=== PATIENT | female | born 1955 | race Caucasian/White ===

== ENCOUNTER 2019-12-30 08:14 | Outpatient (CLI) | payer BC, SELFPAY ==
--- NOTE | ~2019-12-30 | US_ITS ---
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 TECHNIQUE: Multiple grayscale and Doppler ultrasound images of the abdomen were obtained. COMPARISON: Ultrasound 06/07/2019 FINDINGS: The visualized portions of the head and body of the pancreas are normal. The liver demonstr ates coarsened echotexture and surface nodularity, consistent with cirrhosis. The gallbladder is norm al in size and contains gallstones. Gallbladder wall thickening is likely secondary to chronic liver disease. There was no sonographic Luna sign. The common duct is normal and measures 4 mm. IMPRESSION: 1. Cirrhosis of the liver. 2. Cholelithiasis. Reviewed, dictated and finalized at location B.
[2019-12-30 09:19] LABS: Basophils Percent Auto 0.6 % (0.2-1.2); Eosinophils Absolute Auto 0.1 K/mm3 (0-0.3); Eosinophils Percent Auto 2.5 % (0-4.4); Hematocrit 29.2 % (37.0-47.0); Hemoglobin 8.8 g/dL (12.0-15.0); Lymphocytes Absolute Auto 1.17 K/mm3 (0.9-3.2); Lymphocytes Percent Auto 36.9 % (18.3-44.2); Mean Corpuscular HGB Conc 30.1 g/dl (32-36); Mean Corpuscular Hemoglobin 23.9 pg (26-34); Mean Corpuscular Volume 79.3 fl (80-100); Monocytes Absolute Auto 0.3 K/mm3 (0.1-0.6); Monocytes Percent Auto 8.8 % (2.6-8.5); Neutrophils Absolute Auto 1.6 K/mm3 (1.3-6.7); Neutrophils Percent Auto 51.2 % (45.5-73.1); Platelet Count Result 132 k/mm3 (150-375); Red Blood Count 3.68 M/mm3 (4.2-5.4); Red Cell Distribution Width 17.9 % (11.5-14.5); White Blood Count 3.2 K/mm3 (4.5-10.0)
[2019-12-30 09:26] LABS: INR 1.3; Prothrombin Time 15.4 Seconds (11.1-14.7)
[2019-12-30 09:36] LABS: Alanine Aminotransferase 19 U/L (4-35); Albumin Level 3.5 g/dL (3.5-5.1); Alkaline Phosphatase 88 U/L (38-126); Anion Gap 5 mmol/L (8-16); Aspartate Amino Transferase 30 U/L (14-36); Bilirubin,Total 1.2 mg/dL (0.2-1.3); Blood Urea Nitrogen 17 mg/dL (7-17); Calcium 9.8 mg/dL (8.4-10.2); Carbon Dioxide 22 mmol/L (22-30); Chloride 113 mmol/L (98-107); Estimated Glomerular Filt Rate > 60; Glucose 94 mg/dL (65-105); Potassium 3.9 mmol/L (3.4-5.0); Sodium 140 mmol/L (137-145)
[2020-01-05 07:00] LABS: Alpha Fetoprotein Tumor Marker 3.2 ng/mL (<6.1)
== END 2019-12-30 08:15 | disposition home or self-care (01) ==
PROVIDERS: PCP Family Medicine; Visit Provider Internal Medicine Gastroenterology
DX: K70.30 Alcoholic cirrhosis of liver without ascites (principal); K80.20 Calculus of gallbladder without cholecystitis without obstruction
CPT/HCPCS: 36415; 76705; 80053; 82105; 85025; 85610

== ENCOUNTER 2020-01-11 16:08 | Outpatient (CLI) | payer BC, SELFPAY ==
[2020-01-11 17:43] LABS: Immature Reticulocyte Fraction 16.1 % (3.0-15.9); Reticulocyte Hemoglobin Conten 23.7 pg (28.2-35.7); Reticulocyte Percent 0.97 % (0.7-4.3); Reticulocytes Absolute 0.03 B/L (32.2-175.7)
[2020-01-11 17:58] LABS: Iron 25 ug/dL (37-170)
[2020-01-11 18:07] LABS: Percent Iron Saturation 6 % (20-50)
[2020-01-11 18:39] LABS: Folic Acid 13.6 ng/mL (2.76->20)
[2020-01-14 23:31] LABS: Haptoglobin 38 mg/dL (43-212)
== END 2020-01-11 16:09 | disposition home or self-care (01) ==
LOC: ANHLAB 16:12
PROVIDERS: PCP Family Medicine; Visit Provider Internal Medicine Gastroenterology
DX: K70.30 Alcoholic cirrhosis of liver without ascites (principal)
CPT/HCPCS: 36415; 82607; 82728; 82746; 83010; 83540; 83550; 85046

== ENCOUNTER → 2020-02-14 12:32 | Outpatient (CLI) | payer BC, SELFPAY ==
--- NOTE | ~2020-02-14 | MM_ITS ---
EXAMINATION: MM screening [facility] BI w kelli HISTORY: Screening mammogram TECHNIQUE: Craniocaudal and mediolateral oblique 3-D tomosynthesis images were obtained and synthetic 2-D images were generated. CAD analysis was submitted and interpreted. COMPARISON: 09/27/2018, 08/31/2017, 06/25/2016 BREAST PARENCHYMAL COMPOSITION: There are scattered areas of fibroglandular density. FINDINGS: There is no evidence of suspicious mass, calcification, or architectural distortion to sugg est malignancy in either breast. There has been no suspicious interval change. IMPRESSION: 1. No mammographic evidence of malignancy. 2. Recommend routine screening mammography in one year. BI-RADS Category 1: Negative Reviewed, dictated and finalized at location A.
== END ==
PROVIDERS: PCP Family Medicine; Visit Provider Family Medicine
DX: Z12.31 Encounter for screening mammogram for malignant neoplasm of breast (principal)
CPT/HCPCS: 77063; 77067

== ENCOUNTER 2020-03-21 16:10 | Outpatient (CLI) | payer BC, SELFPAY ==
[2020-03-21 16:48] LABS: Basophils Percent Auto 0.6 % (0.2-1.2); Eosinophils Absolute Auto 0.1 K/mm3 (0-0.3); Eosinophils Percent Auto 2.3 % (0-4.4); Immature Granulocyte Absolute 0.01 K/mm3 (0.00-0.031); Immature Granulocyte Percent A 0.2 % (0-0.5); Immature Platelet Fraction Pct 2.8 % (0.9-11.2); Lymphocytes Absolute Auto 1.48 K/mm3 (0.9-3.2); Lymphocytes Percent Auto 30.3 % (18.3-44.2); Mean Corpuscular HGB Conc 33.3 g/dl (32-36); Mean Corpuscular Hemoglobin 29.2 pg (26-34); Mean Corpuscular Volume 87.6 fl (80-100); Mean Platelet Volume 10.5 fl (7.4-10.4); Monocytes Absolute Auto 0.5 K/mm3 (0.1-0.6); Neutrophils Absolute Auto 2.8 K/mm3 (1.3-6.7); Neutrophils Percent Auto 56.6 % (45.5-73.1); Platelet Count Result 106 k/mm3 (150-375); Red Blood Count 4.45 M/mm3 (4.2-5.4); Red Cell Distribution Width 18.8 % (11.5-14.5); White Blood Count 4.9 K/mm3 (4.5-10.0)
== END 2020-03-21 16:11 | disposition home or self-care (01) ==
LOC: ANHLAB 16:12
PROVIDERS: PCP Family Medicine; Visit Provider Internal Medicine Gastroenterology
DX: K70.30 Alcoholic cirrhosis of liver without ascites (principal)
CPT/HCPCS: 36415; 85025; 85055

== ENCOUNTER → 2020-04-06 12:04 | Outpatient (CLI) | payer BC, SELFPAY ==
--- NOTE | ~2020-04-06 | XR_ITS ---
EXAMINATION: XR shoulder LT min 2V DATE: 04/06/2020 13:32 INDICATION: Left shoulder pain. TECHNIQUE: 4 views of left shoulder on 5 radiographs were obtained. COMPARISON: None. FINDINGS: Bone alignment is normal. No fracture. There is severe osteoarthritis of glenohumeral joint and mild osteoarthritis of acromioclavicular joint. IMPRESSION: 1. Severe glenohumeral joint osteoarthritis. Reviewed, dictated and finalized at location A. IGN LAW CONSULTANT
--- NOTE | ~2020-04-06 | XR_ITS ---
XR_CERV2-3V_CR DATE: 04/06/2020 13:32 INDICATION: Left shoulder pain TECHNIQUE: AP, open-mouth, odontoid, lateral and swimmer views COMPARISON: None FINDINGS: There is diffuse osteopenia. There is straightening of the cervical spine. C1 and C2 are normally aligned and the odontoid process is intact. There is minimal anterolisthesis at C3-4 and C4-5 and C6-7. No fracture or dislocation or locked facet. No prevertebral soft tissue swelling. There is mild loss of interspace height at C4-5. There is severe loss of interspace height due to severe degenerative disc disease at C5-6. There is moderate loss of interspace height at C6-7. IMPRESSION: Straightening Diffuse osteopenia Multilevel degenerative disc disease Minimal anterolisthesis at C3-4, C4-5 and C6-7 Reviewed, dictated and finalized at Location A. Reviewed, dictated and finalized at location B. [employer] DEFENSE OFFICER
== END ==
PROVIDERS: Visit Provider Physician Assistant
DX: M85.812 Other specified disorders of bone density and structure, left shoulder (principal); M19.012 Primary osteoarthritis, left shoulder
CPT/HCPCS: 72040; 73030

== ENCOUNTER → 2020-07-27 07:58 | Outpatient (CLI) | payer BC, SELFPAY ==
--- NOTE | ~2020-07-27 | US_ITS ---
EXAMINATION: US right upper quadrant DATE: 07/27/2020 08:18 INDICATION: Alcoholic cirrhosis of the liver TECHNIQUE: Multiple grayscale and Doppler ultrasound images of the abdomen were obtained. COMPARISON: 12/30/2019 FINDINGS: The head and body of the pancreas are normal. The pancreatic tail is obscured by bowel gas. The liver demonstrates coarse echotexture. There is nodularity of the liver surface. Normal hepatope albert flow in the main portal vein. Stones are present in the nondistended gallbladder. There is no per icholecystic fluid. The normal common bile duct measures 5 mm. There was no sonographic Luna sign. IMPRESSION: 1. Cirrhosis. 2. Cholelithiasis without evidence of cholecystitis. Reviewed, dictated and finalized at location A. WORKER
== END ==
PROVIDERS: PCP Family Medicine; Visit Provider Internal Medicine Gastroenterology
DX: K70.30 Alcoholic cirrhosis of liver without ascites (principal); K80.20 Calculus of gallbladder without cholecystitis without obstruction
CPT/HCPCS: 76705

== ENCOUNTER 2020-10-22 13:50 | Outpatient (CLI) | payer BC, SELFPAY ==
--- NOTE | 2020-10-22 14:05 | ECHO_ITS ---
Patient Info Name: Selena Feldman Age: 65 years : 1955 Gender: Female Ht: 65 in Wt: 145 lbs BSA: 1.75 m2 HR: 93 bpm BP: 154 / 83 mmHg Technical Quality: Good Exam Date: 10/22/2020 2:18 PM Exam Location: [facility] Patient Status: Outpatient Admit Date: 10/22/2020 Staff Ordering Physician: Carmen Joseph MD Tipple Repairer: Rajinder Luna, ALYX, RT Attending Provider: Carmen Joseph MD Referring Physician: Opal VASQUEZ; Exam Type: CA echo doppler color flow Study Info Indications R01.1 - Cardiac murmur, unspecified Complete two-dimensional, color flow and Doppler transthoracic echocardiogram is performed. Strain analysis performed. Summary 1. Complete two-dimensional, color flow and Doppler transthoracic echocardiogram is performed. 2. Left ventricular chamber dimension is normal. 3. Left ventricular systolic function is normal, estimated at 60-65%. 4. The left ventricular diastolic function is abnormal. 5. E/e' 10 is mildly elevated. 6. Global longitudinal strain is normal at -23.3%. 7. Left atrial chamber dimension is mildly enlarged. 8. There is trace mitral valve regurgitation. 9. There is trace tricuspid valve regurgitation. 10. No pulmonary hypertension, estimated pulmonary arterial systolic pressure is 37 mmHg. Left Ventricle E/e' 10 is mildly elevated. Global longitudinal strain is normal at -23.3%. Left ventricular chamber dimension is normal. Left ventricular systolic function is normal, estimated at 60-65%. The left ventricular diastolic function is abnormal. Right Ventricle Right ventricular systolic function is normal and with normal TAPSE 2.3 cm. Right ventricular chamber dimension is normal. Left Atria Left atrial chamber dimension is mildly enlarged. Right Atria Right atrial chamber dimension is normal. Aortic Valve The aortic valve is trileaflet. There is no aortic valve stenosis. There is no aortic valve regurgitation. Pulmonic Valve There is no pulmonic regurgitation. Mitral Valve There is no mitral valve stenosis. There is trace mitral valve regurgitation. Tricuspid Valve There is trace tricuspid valve regurgitation. No pulmonary hypertension, estimated pulmonary arterial systolic pressure is 37 mmHg. Pericardium/Pleural There is no pericardial effusion. Inferior Vena Cava Normal inferior vena cava with >50% collapse upon inspiration consistent with normal right atrial pressure, 5 mmHg. Aorta The aortic root size at the sinus of Valsalva is normal. Left Ventricular Outflow Tract Name Value Normal LVOT 2D LVOT Diameter 2.0 cm LVOT Doppler LVOT Peak Gradient 8 mmHg LVOT Mean Gradient 4 mmHg LVOT VTI 24 cm LVOT VTI/AV VTI Ratio 0.7 LVOT Stroke Volume 72 ml LVOT CO 6.4 l/min LVOT CI 3.7 l/min/m2 Mitral Valve Name
== END 2020-10-22 13:51 | disposition home or self-care (01) ==
PROVIDERS: PCP Family Medicine; Visit Provider Family Medicine
DX: R01.1 Cardiac murmur, unspecified (principal)
CPT/HCPCS: 93306

== ENCOUNTER → 2021-02-05 11:12 | Outpatient (CLI) | payer BC, SELFPAY ==
--- NOTE | ~2021-02-05 | CT_ITS ---
EXAMINATION: CT abdomen pelvis wo/w con EXAM DATE: 02/05/2021 12:02 INDICATION: R31.9 - Hematuria, unspecified . TECHNIQUE: Spiral CT of the abdomen and pelvis was performed without contrast. The patient was then injected with small bolus intravenous Omnipaque 350, followed by delay of approximately 10 minutes to allow collecting system to opacify. A post contrast scan abdomen and pelvis was performed during inj ection of remaining contrast. A total of 130 cc intravenous contrast was administered. The dose-booker th product (DLP) for this examination was 1285.93 mGy-cm. The exposure was tailored according to pat ient size (auto mA exposure control), and iterative reconstruction (ASIR) was used as additional dose reduction technique. Comparison is made to prior examination from 08/16/2012. FINDINGS: Multiple bilateral small kidney stones, largest on the left up to 4 mm. There is a right UP J stone measuring 3 mm and there is mild right hydronephrosis but no perinephric fat stranding. Boo tionally, the kidneys enhance symmetrically and contrast does make it beyond the stone into the right ureter, does not appear to be acutely obstructing. There is tortuosity at the right ureteropelvic / proximal ureteral junction. There are no suspicious renal lesions. The calyces and opacified portion s of ureters are unremarkable, without filling defects or focal suspicious strictures. The bladder i s unremarkable. The uterus is not identified and has likely been surgically resected. There is cirrhosis, portal hypertension, splenomegaly and severely enlarged splenic vein and splenore nal portosystemic collateralization, vein diameter up to 2 cm. The adrenal glands and pancreas are un remarkable. There are 2 small nonobstructing gallstones. Gallbladder is moderately distended and has wall edema, finding which is nonspecific in the setting of liver disease and no acute symptomatology was provided. There is no retroperitoneal or pelvic lymphadenopathy. The appendix is normal. The stomach and small bowel are unremarkable. There is expected amount of c olonic stool. No free intraperitoneal gas. Borderline heart size. Trace pericardial and right ple ural effusions. The lung bases are unremarkable. There are no osteoblastic or osteolytic lesions id entified. IMPRESSION: 1. Right UPJ 3 mm nonobstructing or intermittently obstructing stone with mild hydronephrosis. Bilat eral nephrolithiasis. 2. Cirrhosis, splenomegaly, portal hypertension with severely dilated splenorenal collateralization. 3. Cholelithiasis nonspecific gallbladder wall edema. Edema could be from liver disease given absenc e of acute symptomatology. Reviewed, dictated and finalized at location B. IMPRESSION: 1. Right UPJ 3 mm nonobstructing or intermittently obstructing stone with mild hydronephrosis. Bilateral nephrolithiasis. 2. Cirrhosis, splenomegaly, portal hypertension with severely dilated splenore nal collateralization. 3. Cholelithiasis nonspecific gallbladder wall edema. Edema could be from live r disease given absence of acute symptomatology.
[2021-02-05 11:34] LABS: Estimated Glomerular Filt Rate > 60
== END ==
PROVIDERS: PCP Family Medicine; Visit Provider Physician Assistant
DX: R31.9 Hematuria, unspecified (principal); K76.0 Fatty (change of) liver, not elsewhere classified; K80.20 Calculus of gallbladder without cholecystitis without obstruction
CPT/HCPCS: 74178; Q9967

== ENCOUNTER → 2021-02-13 13:02 | Outpatient (CLI) | payer BC, SELFPAY ==
--- NOTE | ~2021-02-13 | XR_ITS ---
XR hip RT min 2V DATE: 02/13/2021 13:39 INDICATION: Right hip pain TECHNIQUE: AP and lateral views COMPARISON: 10/07/2016 pelvis 09/20/2013 right hip FINDINGS: No fracture or dislocation, avascular necrosis or bone destruction. Right hip joint spa is relatively well preserved. Pubic symphysis and sacroiliac joints are intact. IMPRESSION: No significant abnormality Reviewed, dictated and finalized at location B. IMPRESSION: No significant abnormality
== END ==
PROVIDERS: PCP Family Medicine; Visit Provider Physician Assistant
DX: M25.559 Pain in unspecified hip (principal)
CPT/HCPCS: 73502

== ENCOUNTER → 2021-02-20 15:11 | Outpatient (CLI) | payer BC, SELFPAY ==
--- NOTE | ~2021-02-20 | CT_ITS ---
EXAMINATION: CT abdomen pelvis wo con DATE: 02/20/2021 15:35 INDICATION: Ureteral stone. TECHNIQUE: Computed tomography (CT) of the abdomen and pelvis was performed without intravenous contr ast. Automated exposure control and iterative reconstruction technique were employed. The dose-length product was 263.61 mGy-cm. COMPARISON: CT abdomen and pelvis 02/05/2021 FINDINGS: The visualized portions of the lung bases demonstrate mild atelectasis. No pleural effusion . The heart size is normal. No pericardial effusion. The liver demonstrates surface nodularity, consi stent with cirrhosis. There are gallstones in the gallbladder, which is normal in size. Gallbladder w all thickening is noted, likely secondary to chronic liver disease. There is mild splenomegaly. The p ancreas and adrenal glands are normal. There are three 1-2 mm stones in right kidney. There is a 2 mm stone at right ureteropelvic junction. There is mild right hydronephrosis. There are approximately 5 stones in left kidney measuring up to 4 mm. There are no dilated loops of bowel. The appendix is nor mal. Paraesophageal varices are noted. There is a splenorenal portacaval shunt. There are no patholog ically enlarged lymph nodes. There is no free intraperitoneal fluid. There is moderate lumbar spondyl osis. IMPRESSION: 1. 2 mm stone at right ureteropelvic junction with mild right hydronephrosis. 2. Small bilateral nonobstructing kidney stones. 3. Cirrhosis of the liver with portal venous hypertension. Reviewed, dictated and finalized at location A.
--- NOTE | ~2021-02-20 | XR_ITS ---
EXAMINATION: XR abdomen/kub 1V EXAM DATE: 02/20/2021 15:36 INDICATION: Calculus of ureter . TECHNIQUE: Frontal projection(s) of the abdomen for interpretation. Correlation is made to CT abdomen earlier same date. FINDINGS: Possible identification of approximately 2.5 mm stone at the right ureteropelvic junction, although there is stool overlying this region in both renal contours. There is identification of left nephrolithiasis and cholelithiasis. Calcifications in the pelvis are believed to be phleboliths. Exp ected amount of colonic stool and gas. Nonobstructive bowel gas pattern. Lung bases unremarkable. IMPRESSION: Possible identification right UPJ stone. Nephrolithiasis. Cholelithiasis. Reviewed, dictated and finalized at location G. IMPRESSION: Possible identification right UPJ stone. Nephrolithiasis. Cholelit hiasis.
== END ==
PROVIDERS: PCP Family Medicine; Visit Provider Nurse Practitioner Adult Health
DX: N20.1 Calculus of ureter (principal); K80.20 Calculus of gallbladder without cholecystitis without obstruction; K74.69 Other cirrhosis of liver
CPT/HCPCS: 74018; 74176

== ENCOUNTER 2021-02-26 13:28 | Outpatient (CLI) | payer BC, SELFPAY ==
--- NOTE | 2021-02-26 13:30 | ECG_ITS ---
Measurements Intervals [place] Rate: 87 P: 28 MS: 151 QRS: 22 QRSD: 93 T: 16 QT: 331 QTc: 399 Interpretive Statements SINUS RHYTHM BASELINE ARTIFACT- I, III, AVR, AVL, AVF NORMAL ECG Electronically Signed On 02-26-2021 13:47:10 CDT by Chema Cesar D.O.
== END 2021-02-26 13:29 | disposition home or self-care (01) ==
LOC: ANHSURGERY 13:31
PROVIDERS: PCP Family Medicine; Visit Provider Urology
DX: I10 Essential (primary) hypertension (principal); Z01.818 Encounter for other preprocedural examination
CPT/HCPCS: 93005

== ENCOUNTER 2021-03-01 00:55 | Day surgery (SDC) | payer BC, SELFPAY ==
[2021-02-25 10:00] VITALS: BMI 24.6
[2021-03-01] VITALS (8 sets, daily range): BP systolic 119–163; BP diastolic 53–72; PULSE 66–87; RESP 14–19; TEMP 36.6; O2SAT 99–100
--- NOTE | ~2021-03-01 | XR_ITS ---
EXAMINATION: XR fluoroscopy no charge DATE: 03/01/2021 14:56 INDICATION: Right ureteral stone. TECHNIQUE: 4 intraoperative fluoroscopic views of the abdomen and pelvis were obtained. I was not pre sent. Fluoroscopy exposure time was 62 seconds. COMPARISON: CT abdomen and pelvis 02/20/2021 FINDINGS: There is a 4 mm stone in left kidney. There are phleboliths in the pelvis. IMPRESSION: 1. 4 mm stone in left kidney. Reviewed, dictated and finalized at location A.
--- NOTE | 2021-03-01 06:53 | WPDHPUPDATE1 ---
History and Physical Update Update Date/Time: 03/01/21 06:53 History and Physical has been reviewed, including an updated exam of the patient. There are NO changes in the patient's condition. Risks, benefits, and alternatives have been discussed and questions answered. Patient agrees to proceed with procedure.
--- NOTE | 2021-03-01 12:12 | WPDANESEPPF ---
Anes - Initial Pre Proc Eval Procedure: Operation Date: 03/01/21 14:00 Proposed Procedures p Cystoscopy, Right Ureteroscopy, Right Stone Extraction, Possible Right Retrograde Pyelogram, Possible Right Stent Placement, - Alberto Perez MD s Possible Holmium Laser Procedure - Alberto Perez MD Date/Time: 03/01/21 12:12 Surgeon: Alberto Perez MD Pre Op Diagnosis: right ureteral stone Patient Data Age: 65 Gender: F Height: 1.65 m Weight: 67.13 kg Allergies Allergy/AdvReac Type Severity Reaction Status Date / Time Sulfa (Sulfonamide Allergy Severe Anaphylaxis Verified 02/25/21 09:56 Antibiotics) codeine AdvReac Intermediate Nausea Verified 02/25/21 09:56 Home Medications Medication Instructions Recorded Confirmed Type tramadol 50 mg tablet 50 mg PO Q6H PRN #270 tablet 01/11/20 02/25/21 Rx aspirin 81 mg chewable tablet 81 mg PO DAILY 09/25/20 02/25/21 History lactulose 30 ml PO DAILY 02/25/21 02/25/21 History lisinopril 5 mg PO HS 02/25/21 02/25/21 History omeprazole 40 mg PO DAILY 02/25/21 02/25/21 History Patient hx anesthesia problems: none Family hx anesthesia problems: none Results Review: All pre-operative results and documents have been reviewed as part of the pre-operative evaluation. [facility] Past Medical History Medical History Newly recognized murmur Surgical History Surgical History H/O: hysterectomy Social History Social History Alcohol intake: never Substance use: never Substance use type: does not use Living arrangements: with family Spiritual care concerns: No Anes - Eval Final PreProcedure Day of Procedure 03/01/21 12:12 Patient weight: normal Heart: regular rate and rhythm Lungs: clear to auscultation Airway: Mallampati scale class II Neurological: alert and oriented Last oral intake: >/= 8 hours ASA classification: II Emergent: no Anesthetic plan: proceed Anesthesia type and monitoring: general LMA and standard monitoring Results Review: All pre-operative results and documents have been reviewed as part of the pre-operative evaluation. Informed Consent: The patient's anesthetic plan and its attendant risks and benefits were discussed with the patient/family/POA. Questions were solicited and answers provided to the satisfaction of the patient/family/POA.
[2021-03-01] MEDS: LACTATED RINGERS 1,000 ML 30 ML IV CONT (13:01)
--- NOTE | 2021-03-01 14:03 | WPDANESEPPF ---
Anes - Initial Pre Proc Eval Procedure: Operation Date: 03/01/21 14:00 Proposed Procedures p Cystoscopy, Right Ureteroscopy, Right Stone Extraction, Possible Right Retrograde Pyelogram, Possible Right Stent Placement, - Alberto Perez MD s Possible Holmium Laser Procedure - Alberto Perez MD Date/Time: 03/01/21 14:03 Surgeon: Alberto Perez MD Pre Op Diagnosis: right ureteral stone Patient Data Age: 65 Gender: F Height: 1.65 m Weight: 68.1 kg Last Vital Signs Temp 36.6 C 03/01/21 13:10 Pulse 87 03/01/21 13:10 Resp 16 03/01/21 13:10 BP 163/62 H 03/01/21 13:10 Pulse Ox 100 03/01/21 13:10 Allergies Allergy/AdvReac Type Severity Reaction Status Date / Time Sulfa (Sulfonamide Allergy Severe Anaphylaxis Verified 03/01/21 12:19 Antibiotics) codeine AdvReac Intermediate Nausea Verified 03/01/21 12:19 Home Medications Medication Instructions Recorded Confirmed Type tramadol 50 mg tablet 50 mg PO Q6H PRN #270 tablet 01/11/20 03/01/21 Rx aspirin 81 mg chewable tablet 81 mg PO DAILY 09/25/20 03/01/21 History lactulose 30 ml PO DAILY 02/25/21 03/01/21 History lisinopril 5 mg PO HS 02/25/21 03/01/21 History omeprazole 40 mg PO DAILY 02/25/21 03/01/21 History Patient hx anesthesia problems: none Family hx anesthesia problems: none Results Review: All pre-operative results and documents have been reviewed as part of the pre-operative evaluation. [facility] Past Medical History Medical History Essential hypertension Newly recognized murmur Surgical History Surgical History H/O: hysterectomy Social History Social History Alcohol intake: never Substance use: never Substance use type: does not use Living arrangements: with family Spiritual care concerns: No Anes - Eval Final PreProcedure Day of Procedure 03/01/21 14:03 Patient weight: normal Heart: regular rate and rhythm Lungs: clear to auscultation Airway: Mallampati scale class II Neurological: alert and oriented Last oral intake: >/= 8 hours ASA classification: II Emergent: no Anesthetic plan: proceed Anesthesia type and monitoring: general LMA and standard monitoring Results Review: All pre-operative results and documents have been reviewed as part of the pre-operative evaluation. Informed Consent: The patient's anesthetic plan and its attendant risks and benefits were discussed with the patient/family/POA. Questions were solicited and answers provided to the satisfaction of the patient/family/POA.
[2021-03-01] MEDS: SCOPOLAMINE 1.5 MG PATCH TRANSDERM (14:15)
[2021-03-01] MEDS: ceFAZolin 2 GM/D5W 50 ML 2 GM/50 ML BAG IVPB (14:29)
[2021-03-01] MEDS: KETOROLAC 30 MG/ML VIAL (*BKC) IV PUSH (14:29)
[2021-03-01] MEDS: LIDOCAINE HCL 2% GEL UROJET 10 ML PKG MUCOUS MEM (14:53)
--- NOTE | 2021-03-01 14:53 | W.PM.PROC2 ---
Procedure Note - Detailed Date of Procedure 03/01/21 Pre-op Diagnosis Right ureteral stone Post-op Diagnosis same Procedure Performed Cystoscopy, right ureteroscopy with stone extraction Surgeon Alberto Perez MD Anesthesia general Description of Procedure The patient was brought to the operative suite where she is prepped and draped in a routine sterile fashion while in the dorsal lithotomy position after the uneventful induction of a general LMA anesthetic. A 19F rigid cystoscope was placed in the bladder. The patient had no evidence of urethral stricture or bladder neck contracture. The bladder mucosa was endoscopically normal without hyperemia or neoplasm. There was a single, orthotopic ureteral orifice bilaterally. A 0.035 glidewire was advanced into the right renal pelvis under fluoroscopy. The distal ureter was dilated with an 8F/10F ureteral dilator. Ureteroscopy was undertaken with a short, tapered, semi-rigid ureteroscope and the stone was found in the distal right ureter. The stone was extracted with ease using a 1.9F Escape disposable stone basket. Due to the ease of this manipulation I opted not to place a ureteral stent. The patient's bladder was emptied and was taken to the recovery room having tolerated this procedure well. Estimated Blood Loss 0 Drains No Packing No Pathology yes Complications No immediate complications Condition stable Disposition PACU
== END 2021-03-01 16:26 | disposition home or self-care (01) ==
PROVIDERS: PCP Family Medicine; Visit Provider Urology
PROC: (CPT 52352; principal; 2021-03-01 14:00)
DX: N20.1 Calculus of ureter (principal)
CPT/HCPCS: 52352; 82365; 88300; A9270; C1769; J0690; J1100; J1885; J2250; J2405; J2704; J3010; J7120; Q9966

== ENCOUNTER → 2021-03-13 12:43 | Outpatient (CLI) | payer BC, SELFPAY ==
--- NOTE | ~2021-03-13 | MM_ITS ---
EXAMINATION: MM screening [facility] BI w kelli HISTORY: Screening mammogram TECHNIQUE: Craniocaudal and mediolateral oblique 3-D tomosynthesis images were obtained and synthetic 2-D images were generated. CAD analysis was submitted and interpreted. COMPARISON: No prior mammogram is available for comparison at this institution. BREAST PARENCHYMAL COMPOSITION: There are scattered areas of fibroglandular density. FINDINGS: Biopsy marker on the left. Occasional benign calcifications. There is no evidence of susp icious mass, calcification, or architectural distortion to suggest malignancy in either breast. There has been no suspicious interval change. IMPRESSION: 1. No mammographic evidence of malignancy. 2. Recommend routine screening mammography in one year. BI-RADS Category 2: Benign finding(s). Reviewed, dictated and finalized at location A.
== END ==
PROVIDERS: PCP Family Medicine; Visit Provider Family Medicine
DX: Z12.31 Encounter for screening mammogram for malignant neoplasm of breast (principal)
CPT/HCPCS: 77063; 77067

== ENCOUNTER → 2021-08-15 08:00 | Outpatient (CLI) | payer BC, SELFPAY ==
--- NOTE | ~2021-08-15 | US_ITS ---
EXAMINATION: US right upper quadrant EXAM DATE: 08/15/2021 08:33 INDICATION: Cirrhosis of liver TECHNIQUE: Multiple grayscale and Doppler images of the abdomen right upper quadrant were obtained (b y a technologist who performed the scan) and subsequently reviewed. Comparison is made to prior exami nation from 07/27/2020. FINDINGS: The pancreatic head and body are normal in appearance. The pancreatic tail is not visualized. There is nodular liver contour and mildly diffusely heterogeneous echotexture, appearance consistent with cirrhosis. There are no focal liver lesions identified. There is no evidence of intrahepatic bilia ry duct dilation. Portal venous flow was seen in the hepatopedal, normal direction and has normal Do ppler waveform. No right-sided hydronephrosis. Common bile duct measures 4 mm, which is normal. The gallbladder wall is normal in thickness, with ex pected amount of distention. No sonographic evidence of pericholecystic fluid. There is cholelithia sis. Technologist performing exam reports patient did not demonstrate sonographic Luna's sign. P candelario note that this sign is less reliable in patients who have received pain medication. IMPRESSION: 1. Cirrhosis. 2. Gallstones Reviewed, dictated and finalized at location B. IMPRESSION: 1. Cirrhosis. 2. Gallstones
== END ==
PROVIDERS: PCP Family Medicine; Visit Provider Internal Medicine Gastroenterology
DX: K70.30 Alcoholic cirrhosis of liver without ascites (principal); K80.80 Other cholelithiasis without obstruction
CPT/HCPCS: 76705

== ENCOUNTER 2021-08-19 11:21 | Outpatient (CLI) | payer BC, SELFPAY ==
--- NOTE | ~2021-08-19 | XR_ITS ---
EXAM: XR abdomen/kub 1V HISTORY: URETERAL STONE, RIGHT SIDE COMPARISON: XR abdomen 02/20/2021, CT abdomen and pelvis 02/20/2021 FINDINGS: Lung bases clear. Nonobstructive bowel gas pattern. Cholelithiasis. 4 mm round calcificati on projecting to the right of L4-5, may reflect the previously identified right UPJ stone, now advanc ed to the mid ureter. Other punctate bilateral nephroliths poorly visualized radiographically. IMPRESSION: Possible right ureterolithiasis, now advanced slightly to the level of the crossing vessels. Reviewed, dictated and finalized at location K. IMPRESSION: Possible right ureterolithiasis, now advanced slightly to the level of the cros sing vessels.
== END 2021-08-19 11:22 | disposition home or self-care (01) ==
PROVIDERS: PCP Family Medicine; Visit Provider Urology
DX: N20.1 Calculus of ureter (principal)
CPT/HCPCS: 74018

== ENCOUNTER → 2021-08-27 08:25 | Outpatient (CLI) | payer BC, SELFPAY ==
--- NOTE | ~2021-08-27 | CT_ITS ---
EXAMINATION: CT abdomen pelvis wo con DATE: 08/27/2021 08:42 INDICATION: Right flank pain TECHNIQUE: Computed tomography (CT) of the abdomen and pelvis was performed without intravenous contr ast. The dose-length product (DLP) was 291.44 mGy-cm. Automated exposure control and iterative recons truction technique were employed. COMPARISON: 02/20/2021 FINDINGS: The lung bases are clear. The heart size is normal. There is nodularity of the liver surfac e. There is a splenorenal shunt. 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 Stones are present in the no ndistended gallbladder. The adrenal glands are normal. There is a 3 mm stone of the proximal right ur eter which causes moderate right hydroureteronephrosis. Nonobstructing stones of the right kidney steve sure up to 2 mm. Nonobstructing stones of the left kidney measure up to 5 mm. There is calcified athe rosclerosis of the aorta and many of the other arteries. No pathologically enlarged abdominal or pelv ic lymph nodes are identified. There is no free intraperitoneal gas or evidence of bowel obstruction. The appendix is normal. There is a small fat-containing umbilical hernia. There is moderate lumbar s pondylosis at L4-5. IMPRESSION: 1. 3 mm stone in the proximal right ureter causing moderate right hydroureteronephrosis. 2. Bilateral nonobstructing nephrolithiasis. 3. Cirrhosis with portal venous hypertension. Reviewed, dictated and finalized at location A. IMPRESSION: 1. 3 mm stone in the proximal right ureter causing moderate right hydroureteron ephrosis. 2. Bilateral nonobstructing nephrolithiasis. 3. Cirrhosis with portal venous hypertension.
== END ==
PROVIDERS: Visit Provider Urology
DX: N20.2 Calculus of kidney with calculus of ureter (principal)
CPT/HCPCS: 74176

== ENCOUNTER 2021-08-29 10:49 | Outpatient (CLI) | payer BC, SELFPAY ==
[2021-08-29 11:30] LABS: Bilirubin Urine 1+ (Negative); Color Urine Amber (Yellow); Glucose Urine UA Negative (Negative); Ketones Urine Negative (Negative); Leukocyte Esterase Ur Trace LEU/UL (Negative); Nitrate Urine Negative (Negative); Protein Urine Negative (Negative)
[2021-08-29 11:32] LABS: INR 1.3; Prothrombin Time 15.6 Seconds (11.1-14.7)
[2021-08-29 11:33] LABS: Add Urine Microscopic? YES; Appearance Urine Sl Cloudy (Clear); Blood Urine Trace-Intact (Negative); Partial Thromboplastin Time 28.3 SECONDS (22.3-36.8)
[2021-08-29 11:39] LABS: Bacteria Urine Trace /hpf; Mucus Urine Rare /lpf; Squamous Epithelial Cell Urine Many /hpf (Few); WBC Urine 21-30 /hpf
== END 2021-08-29 10:50 | disposition home or self-care (01) ==
PROVIDERS: PCP Family Medicine; Visit Provider Urology
DX: Z01.818 Encounter for other preprocedural examination (principal); N20.1 Calculus of ureter
CPT/HCPCS: 36415; 81001; 85610; 85730; 87086; 87088

== ENCOUNTER 2021-08-30 00:56 | Day surgery (SDC) | payer BC, SELFPAY ==
[2021-08-28 10:19] VITALS: BMI 24.6
--- NOTE | 2021-08-28 10:29 | PC.NURSE ---
Report to the Outpatient Waiting Room, entrance under the green pavilion located off [facility], at time 9:00 on date 08/30/21. OR Time: 11:00. - You and your visitor will be asked a series of questions to screen for COVID 19 for your protection. - A mask is required within the hospital. One visitor will be allowed to accompany the patient into the hospital. Patients visitor will be instructed to remain with patient at all times or leave the building. We will allow the visitor to come back to the postoperative area when patient is ready. Preoperative COVID Testing Requirements: No COVID Test needed if: (proof is required; if not received patient will have Rapid Test prior to entry) - Patient has received COVID Vaccine at least 14 days prior to procedure date or - Patient has positive COVID test result within last 90 days of surgery date. COVID Test needed if above criteria is not met Patients may have clear liquids (water, carbonated beverages, clear teas, apple juice) until 3 hours prior to surgery (8:00) with a maximum of 20 ounces. - No food from midnight until time of surgery Take the following medications with a SIP of water the morning of surgery: TRAMADOL (IF NEEDED) Medications to discontinue per physician: ASPIRIN Date to take last dose: PER DR. JOAQUIN Please no make-up, nail japanese, hairspray, perfume, deodorant, or body powder the day of surgery. No jewelry (including any body piercings) or valuables the day of surgery, leave them at home. Please take a shower or bath the night before, or the morning of, surgery with an antibacterial soap. Wear comfortable, loose fitting clothing. - Jewelry must be removed prior to entering the operating room. Rings and piercings that are not removed may be cut off. - The hospital will not accept responsibility for valuables. - Please leave all valuables, including medications, at home the day of surgery. If you are going home after surgery, a licensed local company refrigerated truck driver must drive you home. - NO public transportation without another adult. - We recommend that an adult stay with you for 24 hours following discharge. - We also recommend that you do not drive, make important decision, drink alcoholic beverages, or take any drugs that were not prescribed by your health care provider for at least 24 hours after your discharge time. Follow any additional instructions given to you from your surgeon. Telephone instructions given to JORDYN MAZARIEGOS and asked if any additional questions and then verbalized understanding. Patient advised to call surgeon office or pre surgery nurse liaison [phone] if any additional questions.
--- NOTE | ~2021-08-30 | XR_ITS ---
EXAMINATION: XR abdomen/kub 1V INDICATION: Right flank pain TECHNIQUE: Supine views of the abdomen were obtained on 2 radiographs. COMPARISON: 08/27/2021 and 08/19/2021 FINDINGS: There is a 3 mm calcification projecting in the expected location of the right proximal ure ter between the right L4 and L5 transverse processes. There are stones measuring 7 mm and 6 mm in the right kidney. A 6 mm stone is present in the lower pole of the left kidney. Phleboliths are noted in the pelvis. The bowel gas pattern is normal. There is moderate osteoarthritis of the hips. IMPRESSION: 1. 3 mm calcification projecting in the expected location of the right proximal ureter. 2. Bilateral nephrolithiasis. Reviewed, dictated and finalized at location A.
--- NOTE | 2021-08-30 06:25 | WPDHPUPDATE1 ---
History and Physical Update Update Date/Time: 08/30/21 06:25 History and Physical has been reviewed, including an updated exam of the patient. There are NO changes in the patient's condition. Risks, benefits, and alternatives have been discussed and questions answered. Patient agrees to proceed with procedure.
--- NOTE | 2021-08-30 07:20 | WPDANESEPPF ---
Anes - Initial Pre Proc Eval Procedure: Operation Date: 08/30/21 11:00 Proposed Procedures p Right Ureteral Extracorporeal Shock Wave Lithotripsy - Alberto Perez MD Date/Time: 08/30/21 07:20 Surgeon: Alberto Perez MD Pre Op Diagnosis: right ureteral stone Patient Data Age: 65 Gender: F Height: 1.65 m Weight: 67.13 kg Allergies Allergy/AdvReac Type Severity Reaction Status Date / Time Sulfa (Sulfonamide Allergy Severe Nausea Verified 08/30/21 09:29 Antibiotics) codeine AdvReac Mild Nausea Verified 08/30/21 09:29 Home Medications Medication Instructions Recorded Confirmed Type aspirin 81 mg chewable tablet 81 mg PO DAILY 09/25/20 08/30/21 History lactulose 30 ml PO DAILY 02/25/21 08/30/21 History omeprazole 40 mg PO DAILY 02/25/21 08/30/21 History tramadol 50 mg tablet 50 mg PO Q6H PRN #270 tablet 07/08/21 08/30/21 Rx alprazolam 0.25 mg PO HS PRN 08/28/21 08/30/21 History lisinopril [Zestril] 5 mg PO DAILY 08/30/21 08/30/21 History Patient hx anesthesia problems: none Family hx anesthesia problems: none Results Review: All pre-operative results and documents have been reviewed as part of the pre-operative evaluation. [facility] Past Medical History Medical History Essential hypertension Newly recognized murmur Surgical History Surgical History H/O: hysterectomy Social History Social History Smoking status: Never smoker Alcohol intake: never Substance use: never Substance use type: does not use Living arrangements: with family Spiritual care concerns: No Anes - Eval Final PreProcedure Day of Procedure 08/30/21 07:20 Patient weight: normal Heart: regular rate and rhythm Lungs: clear to auscultation and normal air movement Airway: Mallampati scale class II Neurological: alert and oriented Last oral intake: >/= 8 hours ASA classification: II Anesthetic plan: proceed Anesthesia type and monitoring: general LMA and standard monitoring Results Review: All pre-operative results and documents have been reviewed as part of the pre-operative evaluation. Informed Consent: The patient's anesthetic plan and its attendant risks and benefits were discussed with the patient/family/POA. Questions were solicited and answers provided to the satisfaction of the patient/family/POA.
[2021-08-30 09:29] VITALS: BP 105/86; PULSE 81; RESP 20; TEMP 37.1; O2SAT 99
--- NOTE | 2021-08-30 09:48 | SUR.PREOP ---
0625-DISCUSSED PT/INR RESULTS WITH DR. JOAQUIN-STATES NO NEED TO REPEAT TODAY. ALSO, DISCUSSED PENDING URINE CULTURE, STATES OKAY TO PROCEED.
[2021-08-30] MEDS: LACTATED RINGERS 1,000 ML 30 ML IV CONT (10:05)
[2021-08-30] MEDS: ceFAZolin 2 GM/D5W 50 ML 2 GM/50 ML BAG IVPB (10:47)
--- NOTE | 2021-08-30 10:58 | W.PM.PROC2 ---
Procedure Note - Detailed Date of Procedure 08/30/21 Pre-op Diagnosis Right ureteral stone Post-op Diagnosis Same Procedure Performed Right ESWL Surgeon Alberto Perez MD Anesthesia General Description of Procedure The patient was brought to the operative suite where she was placed in the supine position on the Dornier lithotripsy table. The focal point of the lithotripter was placed at a 5-6mm right mid-ureteral calculus. A total of 2500 shocks were delivered at a power setting of 4. There appeared to be good fragmentation of the stone early in the procedure. The patient tolerated the procedure well and was taken to the recovery room in good condition. Drains No Packing No Pathology None sent Complications No immediate complications Condition Stable Disposition PACU
[2021-08-30 11:35] VITALS: BP 151/76; PULSE 62; RESP 18; TEMP 36.8; O2SAT 100
[2021-08-30 11:50] VITALS: BP 161/68; PULSE 66; RESP 16; O2SAT 100
[2021-08-30 12:05] VITALS: BP 149/57; PULSE 65; RESP 18; O2SAT 98
[2021-08-30 12:10] VITALS: BP 154/73; PULSE 60; RESP 16
[2021-08-30 12:40] VITALS: BP 155/64; PULSE 73; RESP 16
== END 2021-08-30 13:15 | disposition home or self-care (01) ==
PROVIDERS: PCP Family Medicine; Visit Provider Urology
PROC: (CPT 50590; principal; 2021-08-30 11:00)
DX: N20.2 Calculus of kidney with calculus of ureter (principal); Z79.82 Long term (current) use of aspirin; I10 Essential (primary) hypertension; R01.1 Cardiac murmur, unspecified
CPT/HCPCS: 50590; 74018; A9270; J0690; J1100; J2250; J2405; J2704; J3010; J7120

== ENCOUNTER → 2021-09-05 12:12 | Outpatient (CLI) | payer BC, SELFPAY ==
--- NOTE | ~2021-09-05 | DEXA_ITS ---
Bone Density Report Name: JORDYN MAZARIEGOS Age: 65 Sex: Female Ethnicity: White Date of : 1955 Indication: osteopenia; height loss; hysterectomy; postmenopausal Referring Provider: THALIA MCNEAL Study: Bone densitometry was performed. Exam Date: September 05, 2021 Accession number: [id number] Bone Density: Region BMD T-score Z-score Classification AP Spine (L1-L4) 0.786 -2.4 -0.7 Osteopenia Femoral Neck (Left) 0.553 -2.7 -1.2 Osteoporosis Total Hip (Left) 0.575 -3.0 -1.8 Osteoporosis Femoral Neck (Right) 0.593 -2.3 -0.9 Osteopenia Total Hip (Right) 0.652 -2.4 -1.2 Osteopenia Total Hip Mean 0.614 -2.7 -1.5 Osteoporosis World Health Organization criteria for BMD impression classify patients as: Normal (T-score at or above -1.0), Osteopenia (T-score between -1.0 and -2.5), or Osteoporosis (T-score at or below -2.5). 10-year Fracture Risk: FRAX not reported because: Some T-score for Spine Total or Hip Total or Femoral Neck at or below -2.5 Previous Exams: Region Exam Age BMD T-score BMD Change BMD Change Date g/cm2 vs Baseline vs Previous AP Spine(L1-L4) 09/05/2021 65 0.786 -2.4 -0.084* -0.084* 05/02/2014 58 0.870 -1.6 Total Hip(Left) 09/05/2021 65 0.575 -3.0 -0.137* -0.137* 05/02/2014 58 0.712 -1.9 Total Hip(Right) 09/05/2021 65 0.652 -2.4 -0.125* -0.125* 05/02/2014 58 0.777 -1.4 *Denotes significance at 95% confidence level, LSC for AP Spine = 0.022 g/cm2, LSC for Total Hip = 0.027 g/cm2 Clinical Information Provided by Patient: Has the following medical conditions: Hysterectomy Patient maximum height was 66 Menopause Age: 48 No regular weight bearing exercise Onset of menses at age 16 Number of children 2 Impression: The patient has osteoporosis, based on the Left Total Hip T-score. The BMD for the AP Spine(L1-L4) decreased, changing by -0.084 since the last DXA exam. The BMD for the Total Hip(Left) decreased, changing by -0.137 since the last DXA exam. The BMD for the Total Hip(Right) decreased, changing by -0.125 since the last DXA exam. Discussion: INCREASED RISK OF FRACTURE. BONE DENSITY IS UNDESIRABLY LOW AT ONE OR MORE SKELETAL SITES, CONSISTENT WITH POSTMENOPAUSAL OSTEOPOROSIS. This patient's lowest T-score meets the World Health Organization's (WHO) criteria for osteoporosis at one or more sites (T-score -2.5 or below). In untreated patients, the risk of osteoporotic frac
== END ==
PROVIDERS: PCP Family Medicine; Visit Provider Family Medicine
DX: M85.89 Other specified disorders of bone density and structure, multiple sites (principal); Z78.0 Asymptomatic menopausal state; M81.0 Age-related osteoporosis without current pathological fracture; K21.00 Gastro-esophageal reflux disease with esophagitis, without bleeding
CPT/HCPCS: 77080

== ENCOUNTER 2021-09-13 14:42 | Outpatient (CLI) | payer BC, SELFPAY ==
--- NOTE | ~2021-09-13 | XR_ITS ---
EXAMINATION: XR abdomen/kub 1V INDICATION: Calculus of the ureter TECHNIQUE: Supine views of the abdomen were obtained on 2 radiographs. COMPARISON: 08/30/2021 FINDINGS: The previously described right ureteral stone is not definitely identified. There are stabl e stones of the kidneys. Phleboliths are noted in the pelvis. The bowel gas pattern is normal. There is moderate osteoarthritis of the hips. IMPRESSION: 1. Previously described right ureteral stone not definitely identified. 2. Bilateral nephrolithiasis. Reviewed, dictated and finalized at location B.
== END 2021-09-13 14:43 | disposition home or self-care (01) ==
PROVIDERS: PCP Family Medicine; Visit Provider Urology
DX: N20.0 Calculus of kidney (principal)
CPT/HCPCS: 74018

== ENCOUNTER 2022-02-12 08:15 | Outpatient (CLI) | payer BC, SELFPAY ==
--- NOTE | ~2022-02-12 | US_ITS ---
US abdomen limited INDICATION: Ascites. Alcoholic cirrhosis. PROCEDURE: Realtime right upper abdominal ultrasound. COMPARISON: No prior studies for comparison. FINDINGS: The pancreas is normal without focal mass or pancreatic ductal dilation. There is nodular appearance to the liver surface, compatible with cirrhosis. No focal hepatic mass is identified. The re is normal directional flow in the portal vein. There are gallstones. Common bile duct measures 4 mm. No sonographic Luna's sign. IMPRESSION: 1: Cirrhosis of the liver. 2: Cholelithiasis. Reviewed, dictated and finalized at location B.
== END 2022-02-12 08:16 | disposition home or self-care (01) ==
PROVIDERS: PCP Family Medicine; Visit Provider Internal Medicine Gastroenterology
DX: K70.30 Alcoholic cirrhosis of liver without ascites (principal); K80.20 Calculus of gallbladder without cholecystitis without obstruction
CPT/HCPCS: 76705

== ENCOUNTER 2022-03-20 11:41 | Outpatient (CLI) | payer BC, SELFPAY ==
--- NOTE | ~2022-03-20 | MM_ITS ---
EXAMINATION: MM screening stephanie BI w kelli HISTORY: Screening TECHNIQUE: Craniocaudal and mediolateral oblique 3-D tomosynthesis images were obtained and synthetic 2-D images were generated. CAD analysis was submitted and interpreted. COMPARISON: Comparison to multiple prior studies sequentially, with oldest reviewed study dated 12/2015. BREAST PARENCHYMAL COMPOSITION: The breasts are heterogeneously dense, which may obscure small masses FINDINGS: There is no evidence of suspicious mass, calcification, or architectural distortion to sugg est malignancy in either breast. There has been no suspicious interval change. IMPRESSION: 1. No mammographic evidence of malignancy. 2. Recommend routine screening mammography in one year. BI-RADS Category 1: Negative Reviewed, dictated and finalized at location A.
== END 2022-03-20 11:42 | disposition home or self-care (01) ==
PROVIDERS: PCP Family Medicine; Visit Provider Obstetrics & Gynecology
DX: Z12.31 Encounter for screening mammogram for malignant neoplasm of breast (principal)
CPT/HCPCS: 77063; 77067

== ENCOUNTER 2022-05-30 08:11 | Outpatient (CLI) | payer BC, SELFPAY ==
--- NOTE | ~2022-05-30 | CT_ITS ---
EXAMINATION: CT diagnostic chest w con DATE: 05/30/2022 08:36 INDICATION: Lymphadenopathy TECHNIQUE: Transaxial computed tomographic images of the chest were obtained after the administration of 75 cc of Omnipaque 350 intravenous contrast. The dose-length product (DLP) was 190.97 mGy-cm. Ite rative reconstruction was used. COMPARISON: None FINDINGS: The lungs are free of acute opacities. There is mild dependent pleural thickening of the dana ngs in the lower lobes. No pleural effusion or pneumothorax. No pathologically enlarged thoracic lymp h nodes are identified. The heart size is normal. There is nodularity of the liver surface. There is advanced osteoarthritis of the right glenohumeral joint. Periesophageal varices are noted. There is c holelithiasis. There are large perisplenic varices. There is moderate thoracic spondylosis. IMPRESSION: 1. No thoracic lymphadenopathy identified. 2. Cirrhosis with portal hypertension and paraesophageal and perisplenic varices. Reviewed, dictated and finalized at location B. LOCKER ROOM ATTENDANT IMPRESSION: 1. No thoracic lymphadenopathy identified. 2. Cirrhosis with portal hypertension and paraesophageal and perisplenic varice s.
[2022-05-30 08:30] LABS: Estimated Glomerular Filt Rate > 60
== END 2022-05-30 08:12 | disposition home or self-care (01) ==
PROVIDERS: PCP Family Medicine; Visit Provider Family Medicine
DX: R59.0 Localized enlarged lymph nodes (principal); K74.69 Other cirrhosis of liver; K76.6 Portal hypertension
CPT/HCPCS: 71260; Q9967

== ENCOUNTER 2022-08-20 09:38 | Outpatient (CLI) | payer BC, SELFPAY ==
--- NOTE | ~2022-08-20 | CT_ITS ---
EXAMINATION: CT abdomen pelvis wo/w con DATE: 08/20/2022 10:31 INDICATION: Microhematuria. TECHNIQUE: Computed tomography (CT) of the abdomen and pelvis was performed without and with intraven ous contrast using a total of 130 mL Omnipaque-350 intravenous contrast with a double-bolus technique for simultaneous opacification of the renal parenchyma and renal collecting system. Automated exposu re control and iterative reconstruction technique were employed. The dose-length product was 977.59 m Gy-cm. COMPARISON: CT abdomen and pelvis 08/27/2021, 02/05/21 FINDINGS: The visualized portions of the lung bases demonstrate mild atelectasis. No pleural effusion. Cardiome jeff is noted. No pericardial effusion. The liver demonstrates surface nodularity, consistent with ci rrhosis. The gallbladder is normal in size and contains gallstones. There is mild splenomegaly. There are paraesophageal varices. There is a large splenorenal venous shunt with small volume of thrombus. The pancreas, adrenal glands, and right kidney are normal. There is a 5 mm cyst in left kidney. Ther e are 4 stones in right kidney measuring up to 5 mm . There are proximally 8 stones in left kidney me asuring up to 5 mm. Right ureter is not well opacified in its middle and distal thirds, but is normal . Left ureter is not well opacified in its middle third, but is normal. There is a 2.8 cm cyst in rig ht ovary, stable from 02/05/21, likely an endometrioma or proteinaceous cyst. There is a large volume of stool in the colon. The appendix is normal. There is edema of the intra-abdominal fat. There are n o pathologically enlarged lymph nodes. There is trace pelvic ascites. The bladder is not well distend ed. There is mild thoracic spondylosis and moderate lumbar spondylosis. IMPRESSION: 1. Bilateral nonobstructing kidney stones. 2. Cirrhosis of the liver with portal venous hypertension. 3. Small volume of thrombus in a splenorenal venous shunt. Reviewed, dictated and finalized at location A.
--- NOTE | ~2022-08-20 | XR_ITS ---
EXAMINATION: XR abdomen/kub 1V INDICATION: Microscopic hematuria TECHNIQUE: Supine views of the abdomen were obtained on 2 radiographs. COMPARISON: 09/13/2021 FINDINGS: There are multiple small stones in the left kidney which measure up to 7 mm. There is a 4 m m stone of the right kidney upper pole. Cholelithiasis is noted. The bowel gas pattern is normal. The re are phleboliths of the pelvis. There is moderate osteoarthritis of the hips. IMPRESSION: 1. Bilateral nephrolithiasis. Reviewed, dictated and finalized at location B.
[2022-08-20 10:09] LABS: Estimated Glomerular Filt Rate > 60
== END 2022-08-20 09:39 | disposition home or self-care (01) ==
LOC: ANHIMG 09:43
PROVIDERS: PCP Family Medicine; Visit Provider Nurse Practitioner Adult Health
DX: R31.29 Other microscopic hematuria (principal); N20.0 Calculus of kidney; K76.6 Portal hypertension
CPT/HCPCS: 74018; 74178; Q9967

== ENCOUNTER → 2023-03-09 09:36 | Outpatient (CLI) | payer MEDICARE, SELFPAY ==
--- NOTE | ~2023-03-09 | US_ITS ---
US right upper quadrant INDICATION: Cirrhosis. PROCEDURE: Realtime right upper abdominal ultrasound. COMPARISON: CT dated 08/20/2022 FINDINGS: The pancreas is normal without focal mass or pancreatic ductal dilation. Liver echotexture is heterogeneous with nodular surface, consistent with cirrhosis. There is normal directional flow in the portal vein. There are gallstones. No gallbladder wall thickening or pericholecystic fluid. Common bile duct lydia ures 4 mm. No sonographic Luna's sign. IMPRESSION: 1: Cirrhosis of the liver. 2: Cholelithiasis. Reviewed, dictated and finalized at location B.
== END ==
PROVIDERS: PCP Family Medicine; Visit Provider Internal Medicine Gastroenterology
DX: K74.69 Other cirrhosis of liver (principal); K80.20 Calculus of gallbladder without cholecystitis without obstruction
CPT/HCPCS: 76705

== ENCOUNTER → 2023-03-09 09:38 | Outpatient (CLI) | payer MEDICARE, SELFPAY ==
--- NOTE | ~2023-03-09 | XR_ITS ---
EXAM: XR abdomen/kub 1V DATE: 03/09/2023 10:18 HISTORY: Bilateral kidney stones . COMPARISON: 08/20/2022. FINDINGS: Clear lung bases. Normal bowel gas pattern. No organomegaly. Unchanged 6 mm left lower dale e calcification, with multiple adjacent punctate calcifications. Unchanged 3 mm right upper pole calc ification. Rounded calcification in the right upper quadrant likely represent gallstones. Pelvic phle boliths. Lumbar degenerative disc disease. Bilateral hip osteoarthritis. Osteitis pubis. IMPRESSION: Bilateral nephrolithiasis. Reviewed, dictated and finalized at location K. IMPRESSION: Bilateral nephrolithiasis.
== END ==
PROVIDERS: PCP Family Medicine; Visit Provider Urology
DX: N20.0 Calculus of kidney (principal)
CPT/HCPCS: 74018

== ENCOUNTER → 2023-03-17 11:42 | Outpatient (CLI) | payer MEDICARE, SELFPAY ==
--- NOTE | ~2023-03-17 | MR_ITS ---
EXAMINATION: MR cervical spine wo con DATE: 03/17/2023 12:33 INDICATION: Strain of muscle, fascia and tendon. Neck pain. TECHNIQUE: Magnetic resonance imaging (MRI) of the cervical spine was performed without intravenous c ontrast. COMPARISON: None FINDINGS: Sensitivity is decreased by motion artifact on the axial images. There is 2 mm anterolisthe sis of C3 on C4 and C6 on C7. Vertebral body heights are normal. There is mildly decreased disc heigh t at C4-C5, severely decreased disc height at C5-C6, and mildly decreased disc height at C6-C7. The s scotty cord signal intensity is normal. The following disc levels are specifically discussed: C2-C3: The disc does not extend beyond the endplate margin. There is no uncovertebral joint osteoarth ritis. There is mild left facet joint osteoarthritis. There is ankylosis of right facet joint with mi ld hypertrophy. There is no neural foraminal stenosis. There is no central canal stenosis. C3-C4: The disc does not extend beyond the endplate margin. There is no uncovertebral joint osteoarth ritis. There is severe bilateral facet joint osteoarthritis. There is no neural foraminal stenosis. T here is no central canal stenosis. C4-C5: The disc is bulging. There is severe bilateral uncovertebral joint osteoarthritis. There is se frederick right and moderate left facet joint osteoarthritis. There is mild right and moderate left neural foraminal stenosis. There is mild central canal stenosis. C5-C6: The disc is bulging. There is severe bilateral uncovertebral joint osteoarthritis. There is mo derate bilateral facet joint osteoarthritis. There is mild bilateral neural foraminal stenosis. There is mild central canal stenosis. C6-C7: The disc is bulging. There is moderate bilateral uncovertebral joint osteoarthritis. There is severe bilateral facet joint osteoarthritis. There is mild bilateral neural foraminal stenosis. There is mild central canal stenosis. C7-T1: The disc does not extend beyond the endplate margin. There is no uncovertebral joint osteoarth ritis. There is severe bilateral facet joint osteoarthritis. There is mild bilateral neural foraminal stenosis. There is no central canal stenosis. IMPRESSION: 1. Moderate cervical spondylosis. Reviewed, dictated and finalized at location E.
== END ==
PROVIDERS: PCP Nurse Practitioner Family; Visit Provider Nurse Practitioner Family
DX: S16.1XXA Strain of muscle, fascia and tendon at neck level, initial encounter (principal); X58.XXXA Exposure to other specified factors, initial encounter; M47.892 Other spondylosis, cervical region
CPT/HCPCS: 72141

== ENCOUNTER → 2023-06-20 11:20 | Outpatient (CLI) | payer MEDICARE, SELFPAY ==
--- NOTE | ~2023-06-20 | MM_ITS ---
EXAMINATION: MM screening [facility] BI w kelli HISTORY: Screening mammogram TECHNIQUE: Craniocaudal and mediolateral oblique 3-D tomosynthesis images were obtained and synthetic 2-D images were generated. CAD analysis was submitted and interpreted. COMPARISON: 03/20/2022, 03/13/2021, 02/14/2020 BREAST PARENCHYMAL COMPOSITION: There are scattered areas of fibroglandular density. FINDINGS: No suspicious mass, calcification, or architectural distortion are identified in either dave ast to suggest malignancy. There has been no suspicious interval change. IMPRESSION: 1. No mammographic evidence of malignancy. 2. Recommend routine screening mammography in one year. BI-RADS Category 1: Negative Reviewed, dictated and finalized at location A. EMENT CLERK
== END ==
PROVIDERS: PCP Obstetrics & Gynecology; Visit Provider Obstetrics & Gynecology
DX: Z12.31 Encounter for screening mammogram for malignant neoplasm of breast (principal)
CPT/HCPCS: 77063; 77067

== ENCOUNTER 2023-09-23 08:45 | Outpatient (CLI) | payer MEDICARE, SELFPAY ==
--- NOTE | ~2023-09-23 | US_ITS ---
Limited Abdominal Sonogram: Real-time sonographic imaging of the right upper quadrant was performed. Clinical History: Cirrhosis of liver Findings: The liver appears echogenic/heterogeneous, with no evidence of mass lesion or bile duct di latation. There is somewhat nodular contour of liver. Main portal vein demonstrates normal direction of flow. The gallbladder is well distended, and there is trace echogenic, shadowing gallstones. No de finite gallbladder wall thickening. The common bile duct measures 4 mm. The visualized pancreas, aor ta, and IVC are unremarkable. Right kidney measures 10 cm in length, without hydronephrosis. Impression: Findings compatible cirrhotic change of the liver. No focal mass evident. Cholelithiasis. Reviewed, dictated and finalized at location . Impression: Findings compatible cirrhotic change of the liver. No focal mass evident. Cholelithiasis.
== END 2023-09-23 08:46 ==
PROVIDERS: PCP Family Medicine; Visit Provider Internal Medicine Gastroenterology
DX: K70.30 Alcoholic cirrhosis of liver without ascites (principal); K80.20 Calculus of gallbladder without cholecystitis without obstruction
CPT/HCPCS: 76705

== ENCOUNTER 2023-12-09 10:44 | Outpatient (CLI) | payer MEDICARE, SELFPAY ==
--- NOTE | ~2023-12-09 | DEXA_ITS ---
Bone Density Report Name: JORDYN MAZARIEGOS Age: 68 Sex: Female Ethnicity: White Date of : 1955 Indication: postmenopausal; screening for osteoporosis; height loss; history of glucocorticoids; hysterectomy; Referring Provider: THALIA MCNEAL Study: Bone densitometry was performed. Exam Date: December 09, 2023 Accession number: [id number] Bone Density: Region BMD T-score Z-score Classification AP Spine(L1-L4) 0.792 -2.3 -0.5 Osteopenia Femoral Neck (Left) 0.511 -3.0 -1.5 Osteoporosis Total Hip (Left) 0.646 -2.4 -1.1 Osteopenia Femoral Neck (Right) 0.592 -2.3 -0.7 Osteopenia Total Hip (Right) 0.679 -2.2 -0.9 Osteopenia Total Hip Mean 0.663 -2.3 -1.0 Osteopenia World Health Organization criteria for BMD impression classify patients as: Normal (T-score at or above -1.0), Osteopenia (T-score between -1.0 and -2.5), or Osteoporosis (T-score at or below -2.5). 10-year Fracture Risk: FRAX not reported because: Some T-score for Spine Total or Hip Total or Femoral Neck at or below -2.5 Clinical Information Provided by Patient: Has taken Glucocorticoids Has used the following medications: Vitamin D Has the following medical conditions: Hysterectomy Patient maximum height was 66.0 Menopause Age: 54 Drinks caffeinated beverages Onset of menses at age 15 Number of children 2 Impression: The patient has osteoporosis, based on the Left Femoral Neck T-score. The patient has risk factors, including: history of glucocorticoid therapy. Discussion: INCREASED RISK OF FRACTURE. BONE DENSITY IS UNDESIRABLY LOW AT ONE OR MORE SKELETAL SITES, CONSISTENT WITH POSTMENOPAUSAL OSTEOPOROSIS. This patient's lowest T-score meets the World Health Organization's (WHO) criteria for osteoporosis at one or more sites (T-score -2.5 or below). In untreated patients, the risk of osteoporotic fracture increases approximately two-fold for each 1.0 SD decrease in T-score. Low bone density is not the only risk factor for fracture; also consider factors such as patient's age, frailty or poor health, risk of falling, risk of injury, previous osteoporotic fracture, family history of osteoporosis, cigarette smoking, low body weight, etc. Not everyone with low bone mineral density has osteoporosis; osteomalacia and other metabolic bone disorders should also be considered. Patients who have osteoporosis should be evaluated for specific diseases and conditions (secondary causes) that may cause or contribute to bone loss. The [place] [employer]ocrinologists (AACE) and National Osteoporosis Foundation (NOF) recommend pharmacologic intervention for all postmenopausal women whose T-score is in this range. The patient should follow a healthful lifestyle (good nutrition with adequate calcium and vitamin D, and appropriate weight-b
== END 2023-12-09 10:45 | disposition home or self-care (01) ==
LOC: ANHIMG 10:45
PROVIDERS: PCP Family Medicine; Visit Provider Family Medicine
DX: M81.0 Age-related osteoporosis without current pathological fracture (principal); Z13.820 Encounter for screening for osteoporosis; M85.88 Other specified disorders of bone density and structure, other site; M85.852 Other specified disorders of bone density and structure, left thigh; M85.851 Other specified disorders of bone density and structure, right thigh
CPT/HCPCS: 77080

== ENCOUNTER 2024-05-17 07:16 | Outpatient (CLI) | payer MEDICARE, SELFPAY ==
--- NOTE | ~2024-05-17 | US_ITS ---
Limited Abdominal Sonogram: Real-time sonographic imaging of the right upper quadrant was performed. Clinical History: Cirrhosis Findings: The liver demonstrates nodular contour with heterogeneous echotexture. No mass or biliary dilatation evident. Main portal vein demonstrates normal direction of flow. The gallbladder is well d istended, and demonstrate echogenic, shadowing gallstone. No gallbladder wall thickening. The common bile duct measures 4 mm. The visualized pancreas, aorta, and IVC are unremarkable. Impression: Cirrhotic liver. Cholelithiasis. Reviewed, dictated and finalized at location M. TRUCTION ENGINEERING MANAGER Impression: Cirrhotic liver. Cholelithiasis.
== END 2024-05-17 07:17 | disposition home or self-care (01) ==
LOC: MICIMG 07:17
PROVIDERS: PCP Family Medicine; Visit Provider Internal Medicine Gastroenterology
DX: K70.30 Alcoholic cirrhosis of liver without ascites (principal); K80.20 Calculus of gallbladder without cholecystitis without obstruction
CPT/HCPCS: 76705

== ENCOUNTER 2024-06-21 11:27 | Outpatient (CLI) | payer MEDICARE, SELFPAY ==
--- NOTE | ~2024-06-21 | MM_ITS ---
EXAMINATION: MM screening stephanie BI w kelli HISTORY: Screening TECHNIQUE: Craniocaudal and mediolateral oblique 3-D tomosynthesis images were obtained and synthetic 2-D images were generated. CAD analysis was submitted and interpreted. COMPARISON: Comparison to multiple prior studies sequentially, with oldest reviewed study dated 08/31. BREAST PARENCHYMAL COMPOSITION: Not dense: There are scattered areas of fibroglandular density. FINDINGS: There is no evidence of suspicious mass, calcification, or architectural distortion to sugg est malignancy in either breast. There has been no suspicious interval change. IMPRESSION: 1. No mammographic evidence of malignancy. 2. Recommend routine screening mammography in one year. BI-RADS Category 1: Negative Reviewed, dictated and finalized at location B. IO DESIGNER
== END 2024-06-21 11:28 | disposition home or self-care (01) ==
LOC: MICIMG 11:28
PROVIDERS: PCP Family Medicine; Visit Provider Obstetrics & Gynecology
DX: Z12.31 Encounter for screening mammogram for malignant neoplasm of breast (principal)
CPT/HCPCS: 77063; 77067

== ENCOUNTER 2024-11-29 09:38 | Outpatient (CLI) | payer MEDICARE, SELFPAY ==
--- NOTE | ~2024-11-29 | US_ITS ---
Limited Abdominal Sonogram: Real-time sonographic imaging of the right upper quadrant was performed. Clinical History: Alcoholic cirrhosis Findings: The liver appears heterogeneous, with no evidence of mass lesion or bile duct dilatation. Main portal vein demonstrates normal direction of flow. The gallbladder is well distended, and contai ns echogenic, shadowing gallstones. No gallbladder wall thickening. The common bile duct measures 5 m m. The visualized pancreas, aorta, and IVC are unremarkable. Right kidney unremarkable. Impression: Heterogeneous hepatic echotexture with mildly nodular contour is compatible with cirrhotic change. Cholelithiasis. Reviewed, dictated and finalized at location M. Impression: Heterogeneous hepatic echotexture with mildly nodular contour is compatible wit h cirrhotic change. Cholelithiasis.
== END 2024-11-29 09:39 | disposition home or self-care (01) ==
LOC: MICIMG 09:39
PROVIDERS: PCP Family Medicine; Visit Provider Internal Medicine Gastroenterology
DX: K70.30 Alcoholic cirrhosis of liver without ascites (principal)
CPT/HCPCS: 76705

== ENCOUNTER 2025-02-06 16:04 | Outpatient (CLI) | payer MEDICARE, SELFPAY ==
--- NOTE | ~2025-02-06 | XR_ITS ---
XR abdomen/kub 1V 02/06/2025 16:34 Indication: Renal stone Procedure: KUB Comparison: Comparison to multiple prior studies sequentially, with oldest reviewed study dated 08/30/2021. Findings: There is moderately dilated colon in the central abdomen with fecal impaction of the colon. There are calcifications overlying the upper pole of the right kidney which may represent renal stones or gallstones. Moderate colonic fecal loading. Impression: 1: Calcifications overlying the right kidney which may represent gallstones or renal stones. 2: Nonspecific bowel gas pattern with dilated colon in the central abdomen which may be due to fecal impaction. Reviewed, dictated and finalized at location O. Impression: 1: Calcifications overlying the right kidney which may represent gallstones or renal stones. 2: Nonspecific bowel gas pattern with dilated colon in the central abdomen whi ch may be due to fecal impaction.
== END 2025-02-06 16:05 | disposition home or self-care (01) ==
LOC: MICIMG 16:05
PROVIDERS: PCP Family Medicine; Visit Provider Urology
DX: N20.0 Calculus of kidney (principal)
CPT/HCPCS: 74018

== ENCOUNTER 2025-04-06 09:00 | Emergency (ER) | payer MEDICARE, SELFPAY ==
[2025-04-06] VITALS (8 sets, daily range): BP systolic 144–170; BP diastolic 58–74; PULSE 78–86; RESP 14–21; TEMP 37.2; O2SAT 100
--- NOTE | ~2025-04-06 | CT_ITS ---
EXAMINATION: CT brain wo con DATE: 04/06/2025 10:51 INDICATION: Confusion TECHNIQUE: Computed tomography (CT) of the head was performed without intravenous contrast. The dose-length product was 605.33 mGy-cm. COMPARISON: 01/05/2016 FINDINGS: No gross intracranial mass effect or hemorrhage. No large acute ischemic event. Calvarial structures appear stable. Mild diffuse volume loss and chronic microischemic ischemic appearing white matter changes. IMPRESSION: 1. No gross intracranial mass effect or hemorrhage. Reviewed, dictated and finalized at location [facility] [employer]
--- NOTE | 2025-04-06 09:23 | ECG_ITS ---
Test Date: 2025-04-06 09:57:04 Measurements Intervals [place] Rate: 80 P: 44 AK: 140 QRS: 27 QRSD: 104 T: 29 QT: 361 QTc: 418 Interpretive Statements SINUS RHYTHM No previous ECG available for comparison Electronically Signed On 04-06-2025 10:19:15 BINDERY MACHINE FEEDER OFFBEARER by El Raines D.O
[2025-04-06 09:42] LABS: Hematocrit 30.8 % (37.0-47.0); Hemoglobin 9.9 g/dL (12.0-15.0); Immature Granulocyte Percent A 0.3 % (0-0.5); Lymphocytes Absolute Auto 1.19 K/mm3 (0.9-3.2); Mean Corpuscular HGB Conc 32.1 g/dl (32-36); Mean Corpuscular Hemoglobin 28.3 pg (26-34); Mean Corpuscular Volume 88.0 fl (80-100); Nucleated Red Blood Cells Absolute Auto 0.000 K/mm3 (0.0-0.012); Nucleated Red Blood Cells Perc 0.0 % (0.0-0.2); Platelet Count Result 109 k/mm3 (150-375); Red Blood Count 3.50 M/mm3 (4.2-5.4); White Blood Count 3.8 K/mm3 (4.5-10.0)
[2025-04-06 09:48] LABS: Alanine Aminotransferase 18 U/L (6-35); Albumin Level 3.6 g/dL (3.5-5.1); Alkaline Phosphatase 71 U/L (38-126); Anion Gap 5 mmol/L (4-12); Aspartate Amino Transferase 28 U/L (14-36); Bilirubin,Total 1.7 mg/dL (0.2-1.3); Blood Urea Nitrogen 24 mg/dL (7-17); Calcium 10.8 mg/dL (8.4-10.2); Carbon Dioxide 21 mmol/L (22-30); Chloride 118 mmol/L (98-107); Estimated CRCL calculation 43 ml/min; Estimated Glomerular Filt Rate 56; Glucose 90 mg/dL (65-110); Potassium 3.8 mmol/L (3.4-5.0); Sodium 144 mmol/L (137-145); Total Protein 7.1 g/dL (6.3-8.2)
[2025-04-06 09:49] LABS: Ammonia 47 umol/L (9-30)
--- OUTSIDE RECORDS SUMMARY | 2025-04-06 09:57 | XMS_ITS | Encounter Summary ---
Author Organization [facility] Address [address] [place] [address] Phone Care Team Providers Care Casing In Line Setter Name Role Phone Carmen Joseph MD Primary Care Provider + Encounter Details Date Type Department Care Team (Late st Contact Info) Description 09/23/2023 Orders Only [facility] Scanning, Provider Social History Tobacco Use Types Packs/Day Years Used Date Smoking Tobacco: Never Smokeless Tobacco: Never Alcohol Use Standard Drinks/Week Comments No 0 (1 standard drink = 0.6 oz pur e alcohol) Hx heavy use, last used '13 AUDIT-C Answer Date Recorded Q1: How often do you have a drink containing alc ohol? Patient declined 07/08/2023 Average Number of Drinks Not on file 024 Frequency of Binge Drinking Not on file 06/19 Hunger Vital Sign Answer Date Recorded Within the past 12 months, y ou worried that your food would run out before you got the money to buy more. Never true 07/08/19 24 Within the past 12 months, t he food you bought just didn't last and you didn't have money to get more. Never true 07/08/2023 Personal Safety Answer Date Recorded Have you ever been in or are you currently in a harmful physical or emotional relationship or is someone making you feel afraid or unsafe? 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 Author CCM Chronic Pain Care Plan Chronic Care Management Nika Valencia RN Note: Problem: Chronic Pain Goals: 1. Minimize further functional decline 2. Maximize quality of life 3. Control pain Strategies: - Activity/exercise program recommendation - Conservative stepwise pain medicine strategy with multi-disciplinary approach - Recommend healthy lifestyle strategies and compensatory methods as needed documented as of this encounter Procedures Procedure Name Priority Date/Time Associated Diagnosis Comments SCAN - RADIOLOGY/IMAGING 09/23/2023 documented in this encounter Results * SCAN - RADIOLOGY/IMAGING (09/23/2023) Anatomical Region Laterality Modality Other us Provider Scanning Final Result documented in this encounter Visit Diagnoses Not on filedocumented in this encounter Care Teams Casing In Line Setter Relationship Specialty Start Date End Date Carmen Joseph MD PCP - General 09/17/16 documented as of this encounter
--- OUTSIDE RECORDS SUMMARY | 2025-04-06 09:57 | XMS_ITS | Clinical Summary ---
Author Organization [facility] Address [address] [address] Care Team Providers Care Gate Keeper Name Role Phone Carmen Joseph MD Primary Care Provider + Allergies Active Allergy Reactions Criticality Noted Date Comments Codeine Nausea & Vomiting Low Sulfa (Sulfonamide Antibiotics) Rash,Nausea And Vomiting Medium 03/27/2020 Medications lisinopriL (PRINIVIL,ZESTR IL) 10 mg tablet Take 1 tablet (10 mg total) by mouth daily Active ALPRAZolam (XANAX) 0.25 mg tablet TAKE 1 TO 2 TABLETS BY MOUTH AT BEDTIME NEEDED FOR ANXIETY 4 Active Gemtesa 75 mg tablet 5 Active omeprazole (PriLOSEC) 40 mg capsule Take 1 capsule (40 mg total) by mouth daily with breakfast 90 capsule 3 5 Active cholecalciferol (VITAMIN D-3) 50,000 unit capsule Take 1 capsule (50,000 Units total) by mouth 5 Active rifAXIMin (XIFAXAN) 550 mg tabletIndicatio ns:Alcoholic cirrhosis of liver without ascites (HCC) Take 1 tablet (550 mg total) by mouth 2 (two) times a day 60 tablet 11 5 Active lactulose solution 10 gram/15mLIndica tions:Alcoholic cirrhosis of liver without ascites (HCC) Take 30 mL (20 g total) by mouth daily 1000 mL 11 5 Active lactulose solution 10 gram/15mL 15 mL (10 g total) 6 03/30/20 25 Discontinu ed(Reorder ) Active Problems Problem Noted Date Diagnosed Date Hepatic encephalopathy 04/02/2025 Assessment & Plan (04/02/2025 6:55 PM DRY DIP WORKER): I will accept there may be some component of hepatic encephalopathy responsible for her mental status changes. However, spontaneous improvement in the absence of intensive lactulose therapy is relatively unusual. My experience is that the memory loss associated with hepatic encephalopathy, rarely responds to standard lactulose dosing and the goal of 3-5 loose stools daily. I think it reasonable for her to take lactulose. However, I think we might get more of a response to the addition of rifaximin 550 mg BID. Furthermore, I am not convinced she will take lactulose at doses adequate to result in regular stools. When I mentioned 3-5 stools daily, she was shocked and resistant. Overall, I suspect her wide array of neurologic problems is multi-factorial, with components of hepatic encephalopathy, alcoholic dementia, and the micro-bleeds within the brain. I think neuro-psychiatric testing is an excellent idea and may allow us to learn more about her underlying problems. The response to lactulose and rifaximin should be seen within the next 2-4 weeks. Further recommendations based on her clinical course. Cerebral hemorrhage 01/14/2024 Assessment & Plan (01/14/2024 12:59 PM CDT): Her brain MRI on 01/06/24 showed progression of microvascular white matter disease, and interval appearance of multiple microhemorrhages in bilateral cerebral hemispheres and midbrain and cerebellum, compared to prior MRI 05/06/17. I discussed with Dr. Galindo in radiology who interpreted the study. The etiology is not clear. This could be related to coagulopathy in the setting of her underlying cirrhosis, although clinical and laboratory evidence suggests that her cirrhosis seems compensated in recent years and there is no other evidence of coagulopathy. I discussed briefly with a colleague in vascular neurology and will refer for consultation for evaluation of microhemorrhages and management recommendations. Gait instability 12/06/2023 Assessment & Plan (10/20/2024 9:22 PM CDT): She has gait impairment characterized by short stride, slightly stooped posture, and slight postural instability on pull test. The etiology is still not clear at this time and may be multifactorial in nature. She has hyperreflexia throughout the neuroaxis, including spread in bilateral upper extremities, bilateral Dayanna, spread in bilateral lower extremities, and bilateral ankle clonus (although does not have detectable jaw jerk today). She has reduced vibratory and temperature sensation in the feet. She does not have any substantial bradykinesia on exam and has increased tone in both upper extremities that may be more consistent with spasticity than rigidity, making her presentation less concerning for parkinsonism. She reports no major progression of many of these motor symptoms over the past year, which may be encouraging. We may need to monitor symptoms for some additional time. It is reasonable to continue PT as tolerated, and I can plan to see her back in about a year. She knows to call my office or send [employer] message in the meantime if we need to address issues before next visit. She should follow up with vascular neurology as scheduled. I gave her a hard copy referral for PT. She knows she will need to call to schedule the appointment. Assessment & Plan (08/23/2024 3:51 PM CDT): Mrs. Pandya was doing ok. She had no falls or near falls. She had left knee surgery about 9 weeks ago. She had less knee pain, completed PT and continue exercises at home. She still had some slowness, but was careful on her knee. She used a cane sometimes out of the house. She was able to walk today without using her cane. Recommendations Follow up in Jun with Dr. Vázquez and sooner if needed No medication changes Follow up with HCP as recommended and as needed Fall precaution Assessment & Plan (12/06/2023 8:04 AM CDT): She has gait impairment characterized by short stride, slightly stooped posture, and slight postural instability on pull test. The etiology is not clear at this time and may be multifactorial in nature. She has hyperreflexia throughout the neuroaxis, with mild jaw jerk, spread in bilateral upper extremities, bilateral Dayanna, spread in bilateral lower extremities, and bilateral ankle clonus. She has reduced vibratory and temperature sensation in the feet. She does not have any substantial bradykinesia on exam and has increased tone in both upper extremities that may be more consistent with spasticity than rigidity, making her presentation less concerning for parkinsonism. However, her report of progressive symptoms over several years, and the presence of a jaw jerk, are potentially consistent with a neurodegenerative process at the level of the brainstem or higher. I would like to repeat her brain MRI and compare to prior scan from 2017. We may need additional diagnostic testing after that and I will coordinate with Dr. Concepcion and the rest of her care team. Brain MRI without and with contrast. Hyperreflexia 12/06/2023 Shoulder pain 06/04/2022 Osteoarthritis of left shoulder 05/06/2022 Overview (05/06/2022): Added automatically from request for surgery [id number] Alcohol dependence in remission 12/19/2019 Assessment & Plan (04/02/2025 6:47 PM DRY DIP WORKER): Ongoing abstinence will be gary to her survival. A return to drinking would clearly lead to additional liver injury and further decompensation. Assessment & Plan (02/25/2024 5:57 PM CDT): Her last alcoholic beverage was now more than 12 years ago. She denied any cravings or withdrawals. Plan: Congratulated on ongoing abstinence Assessment & Plan (02/23/2023 9:09 AM CDT): Her last alcoholic beverage was 11 years ago. Congratulated and encouraged her on continued strict abstinence from alcohol. Assessment & Plan (02/03/2022 6:45 PM CDT): She understands the importance of long-term abstinence. A return to heavy drinking will most certainly lead to additional liver injury and decompensation. Assessment & Plan (02/04/2021 5:52 PM CDT): I stressed the importance of long-term abstinence. A return to heavy drinking will clearly lead to further liver dysfunction. Assessment & Plan (12/19/2019 5:44 PM CDT): She understands the importance of ongoing alcohol abstinence. Alcoholic cirrhosis of liver without ascites Overview (06/01/2018): Added automatically from request for surgery [id number] Assessment & Plan (04/02/2025 6:45 PM DRY DIP WORKER): Decompensated, with intact hepatic synthetic function. No significant decrease in hepatic synthetic function. Assessment & Plan (02/25/2024 5:56 PM CDT): Briefly, well compensated alcohol related cirrhosis with MELD 3.0 score of 11. She is asymptomatic today from a liver standpoint with largely unremarkable examination. Her last EGD was (01/2023) with normal esophagus, no biopsies. Her last RUQ US (09/2023) negative for HCC. She has titrated her lactulose based on mental status changes. She continues to remain abstinent from alcohol for the past 12 years. Plan: She will be due for surveillance EGD in [id number] with ongoing US monitoring for HCC and biochemical testing She will return to clinic in 1 year or earlier as clinically indicated Assessment & Plan (02/23/2023 9:11 AM CDT): Well-compensated alcohol related cirrhosis with MELD 3.0 of 9. She is doing well. No complications from portal hypertension. Last EGD 2022 w/ normal esophagus; due in 2025 for surveillance EGD. Overdue for HCC screening. Will refer for Liver US. We discussed lactulose use; I do not think she currently has hepatic encephalopathy. We recommend stopping lactulose and restart if any changes in mental status noted. She will return in 1 year or earlier as clinically indicated. Assessment & Plan (02/03/2022 6:44 PM CDT): Currently well compensated and without obvious complications of portal hypertension. I ordered an ultrasound of the liver to screen for hepatocellular carcinoma. I am not convinced she needs to take lactulose in the absence of any change in mental status. She will try stopping it but will restart if she notices changes in mental status. She will return in 1 year or when clinically indicated. Assessment & Plan (02/04/2021 5:52 PM CDT): Currently well compensated and improving in the face of alcohol abstinence. I stressed the importance of alcohol abstinence indefinitely. She does need imaging of the liver to screen for hepatocellular carcinoma. If the upcoming CT scan gives adequate images of the liver, that will suffice for now. Additional imaging will be required 6 months. She will return on an annual basis or when clinically indicated. Assessment & Plan (12/19/2019 5:43 PM CDT): Currently doing well in the face of ongoing alcohol abstinence. As long as she remains abstinent, her future is bright. I stressed the importance of ongoing imaging of the liver to screen for hepatocellular carcinoma. I will order another ultrasound and check labs. She will return on an annual basis or when clinically indicated. 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 Esophageal varices in cirrhosis 02/23/2015 02/19/2024 Ascites 05/30/2013 02/19/2024 Encounters Date Type Department Care Team Description 03/31/2025 Documentation [facility] [address] [place] [address] Rose Mcrae, Magali 03/30/2025 6:00 PM DRY DIP WORKER Lab [facility] [address] [place] [address] Alcoholic cirrhosis of liver without ascites (HCC); Memory changes 03/30/2025 5:45 PM DRY DIP WORKER Lab [facility] ([facility] [address] [place] [address] 03/30/2025 2:00 PM DRY DIP WORKER Office Visit [facility] [address] [place] [address] [place] [address] Alberto Cruz MD Alcoholic cirrhosis of liver without ascites (HCC) (Primary Dx); Alcohol dependence in remission (HCC); Hepatic encephalopathy (HCC) 03/30/2025 Results Follow-Up [facility] [address] [place] [address] [place] [address] Alberto Crzu MD Vitamin D 25 hydroxy, Vitamin B12, [id number], Tumor Marker, Additional followed-up results: 4 03/29/2025 10:00 AM DRY DIP WORKER Office Visit [facility] Stroke [address] [place] [address] Kareem Medina MD Hepatic encephalopathy (HCC) (Primary Dx); Memory changes from Last 3 Months Immunizations Immunization Administration Dates Next Due Hep A / Hep B 07/01/2013 Hep B Vaccine 12/29/2013,07/29/2013 Influenza, Quadrivalent, Spl it, Preservative Free, Intramuscular 03/27/2020 Pfizer SARS-CoV-2 Monovalent Vaccination (12+ Yrs) PURPLE 10/28/2021,04/08/2021,08/07/2020,07/17 Surgical History Surgery Date Site/Laterality Comments UPPER GASTROINTESTINAL ENDOSCOPY DIAGNOSTIC LAPAROSCOPY SECTION x2 HYSTERECTOMY COLONOSCOPY 05/18/2018 - 06/17/2018 FLUORO GUIDED INJECTION SHOU LDER LEFT 06/18/2020 Left FLUORO GUIDED INJECTION SHOU LDER LEFT 08/26/2021 Left SHOULDER SURGERY 06/04/[address] Preciado NEPHROSTOMY TRACT DILATATION W/ LITHOTRIPSY Medical History Medical History Date Comments Personal history of other di seases of urinary system History of acute renal failu re - (Added by TW Conv) GERD (gastroesophageal reflu x disease) Hypertension Cirrhosis with alcoholism (HCC) portal HTN, varices, encephalopathy. Sober '13 Esophageal varices without b leeding (HCC) 08/24/2018 Added automatically from [facility] uest for surgery [id number] Iron deficiency anemia Motion sickness Vertigo Arthritis of shoulder 2020 Liver failure ([facility]) 2012 Knee pain 2000 Ascites 05/30/2013 Family History Medical History Relation Name Comments Arthritis Father Blue COPD Father Blue Arthritis Mother Caitlin Dementia Mother Caitlin Pulmonary embolism Sister Anesthesia problems Neg Hx Parkinsonism Neg Hx Relation Name Status Comments Father Blue (Age 78) Mother Caitlin (Age 92) Sister (Age 47) Social History Tobacco Use Types Packs/Day Years Used Date Smoking Tobacco: Never Smokeless Tobacco: Never Tobacco Cessation:Counseling Given: Not Answered Alcohol Use Standard Drinks/Week Comments No 0 (1 standard drink = 0.6 oz pur e alcohol) Hx heavy use, last used AUDIT-C Answer Date Recorded Q1: How often [...] on file Legal Sex Female 9:50 AM DRY DIP WORKER Gender Identity Not on file Sexual Orientation Not on file 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 Not on file Not on file Not on file Last Filed Vital Signs Vital Sign Reading Time Taken Comments Blood Pressure 127/77 03/30/2025 1:56 PM DRY DIP WORKER Pulse 89 03/30/2025 1:56 PM DRY DIP WORKER Temperature 36.7 C (98.1 F) 03/30/2025 1:56 PM DRY DIP WORKER Respiratory Rate 16 02/25/2024 4:19 PM CDT Oxygen Saturation 98% 03/30/2025 1:56 PM DRY DIP WORKER Inhaled Oxygen Concentration - - Weight 57.2 kg (126 lb) 03/30/2025 1:56 PM DRY DIP WORKER Height 165.1 cm (5' 5) 03/30/2025 1:56 PM DRY DIP WORKER Body Mass Index 20.97 03/30/2025 1:56 PM DRY DIP WORKER Plan of Treatment Health Maintenance Due Date Last Done Comments Breast Cancer Screening-Mammogram 1955 Osteoporosis Screening-Bone Density Scan 1957 DTaP/Tdap/Td Vaccine (1 - Tdap) 1968 Pneumococcal vaccine 65+ (1 of 2 - PCV) 1976 Zoster Vaccine (1 of 2) 10/02/2007 Well Visit 65+ 2022 Fall Risk Assessment 02/11/2024 02/10/2023 Depression Screening 11/10/2024 11/11/2023 Covid-19 Vaccine (5 - 2024-2 6 season) 2025 10/28/2021, 04/08/2021, 08/07/2020, Additional history exists Influenza Vaccine (#1) 2025 03/27/2020 Colon Cancer Screening-Colonoscopy 06/10/2028 06/10/2018 Hepatitis C Screening Completed 04/15/2013 Colon Cancer Screening-CT Colonography Discontinued 06/10/2018 Colon Cancer Screening-DNA Stool Discontinued 06/10/19 Colon Cancer Screening-FIT Discontinued 06/10/2018 Colon Cancer Screening-Sigmoidoscopy Discontinued 06/10/2018 Goals Goal Patient Goal Type Associated Problems [...] lifestyle strategies and compensatory methods as needed Medical Devices Implanted Type Area Retail Zone Specialist Device Identifier Shelf Expiration Date Model / Serial / Lot [employer] Simplex P Radiopaque Full Dose Cement Bone Sterile 6191-1-010 - [id number] Implanted:Qty: 1 on 06/04/2022 by Walter Preciado MD at [facility] Left: Shoulder [employer] 11/14/2024 6191-1-01 [id number] / / [id number] [employer] Aequalis Perform 30mm Peg Shoulder Small Component Glenoid All Latex Free [id number] - [id number] - [id number] Implanted:Qty: 1 on 06/04/2022 by Walter Preciado MD at [facility] Left: Shoulder [employer] [id number] 03/17/2023 [id number] / [id number] / [employer] Stem Perform Sz 1 Plus Humeral Long [id number] - [id number] Implanted:Qty: 1 on 06/04/2022 by Walter Preciado MD at [facility] Left: Shoulder [employer] [id number] 03/05/2027 [id number] / / [id number] [employer] Attic Fans Mechanic Perform Centered Modular Humeral Head Ti [id number] - [id number] Implanted:Qty: 1 on 06/04/2022 by Walter Preciado MD at [facility] Left: Shoulder [employer] [id number] 08/16/2026 [id number] / / [id number] [employer] Head Perform Cocr Modular Humeral [id number] - [id number] - [id number] Implanted:Qty: 1 on 06/04/2022 by Walter Preciado MD at [facility] Left: Shoulder [employer] [id number] 04/19/2026 [id number] / [id number] / Procedures Procedure Name Priority Date/Time Associated Diagnosis Comments EGFR Routine 03/30/2025 3:09 PM DRY DIP WORKER Alcoholic cirrhosis of liver without ascites (HCC) FOLATE Routine 03/30/2025 3:09 PM DRY DIP WORKER Memory changes COMPREHENSIVE METABOLIC PANEL Routine 03/30/2025 3:09 PM DRY DIP WORKER Alcoholic cirrhosis of liver without ascites (HCC) CBC WITHOUT DIFFERENTIAL Routine 03/30/2025 3:09 PM DRY DIP WORKER Alcoholic cirrhosis of liver without ascites (HCC) PROTIME-INR Routine 03/30/2025 3:09 PM DRY DIP WORKER Alcoholic cirrhosis of liver without ascites (HCC) [id number], TUMOR MARKER Routine 03/30/2025 3:09 PM DRY DIP WORKER Alcoholic cirrhosis of liver without ascites (HCC) VITAMIN B12 Routine 03/30/2025 3:09 PM DRY DIP WORKER Alcoholic cirrhosis of liver without ascites (HCC) VITAMIN D 25 HYDROXY Routine 03/30/2025 3:09 PM DRY DIP WORKER Alcoholic cirrhosis of liver without ascites (HCC) COLONOSCOPY 06/10/2018 10:29 AM DRY DIP WORKER SERUM HEPATITIS PANEL Routine 04/15/2013 6:57 AM DRY DIP WORKER from Last 3 Months or Most Recently Relevant to Health Maintenance Results * (ABNORMAL) eGFR (03/30/2025 3:09 PM DRY DIP WORKER) eGFR 57(L) >=60 mL/min/1. 73 m2 Comment: Interpretive Data Reference Interval Normal >/= 90 mL/min/1.73m2 Mildly decreased* 60 - 89 mL/min/1.73m2 Mildly to moderately decreased 45 - 59 mL/min/1.73m2 Moderately to severely decreased 30 - 44 mL/min/1.73m2 Severely decreased 15 - 29 mL/min/1.73m2 Kidney Failure < 15 mL/min/1.73m2 *Relative to young adult level Estimated glomerular filtration rate is determined by the 2020 CKD-EPI equation recommended by the National Kidney Foundation (A Unifying Approach to GFR Estimation: Recommendations of the NKF-ASK Task Force on Reassessing the Inclusion of Race in Diagnosing Kidney Disease, JASN 2020). The CKD-EPI equation should not be used for patients with unstable renal function and has not been validated in children and those over 70. Current interpretive data was last reviewed 2021. Blood 03/30/2025 3:09 PM DRY DIP WORKER 03/30/2025 3:52 PM DRY DIP WORKER us Alberto Cruz MD LAB BLOOD ORDERABLES F inal Result CERNER [facility] [place] [address] * [id number], Tumor Marker (03/30/2025 3:09 PM DRY DIP WORKER) Pathologist [facility] alpha Fetoprotein 2.3 <=8.3 ng/mL Comment: Interpretive Data The Broderick AFP assay procedure was used. Results from different manufacturers or methods may not be comparable. Serial testing should be performed using the same method. 0-1 month. AFP concentrations may reach or exceed 100,000 ng/mL after depending on gestational age and weight. 1-3 months 50 1000 ng/ml 3-6 months 10 500 ng/ml 6-12 months 3.0 100 ng/ml >1 year 0.0 8.3 ng/ml References Charisma Bishop. et al. J. Ped Surg 1978;13:155-156 Raina Brothers. et al. Clin Chem Lab Med 2018;57:783-797 Za Adamson et al. Clin Chem 2014;2153-6894. Current interpretive data was last revised 2022. Blood 03/30/2025 3:09 PM DRY DIP WORKER 03/30/2025 3:47 PM DRY DIP WORKER Alberto Cruz MD LAB BLOOD ORDERABLES F inal Result Performing Organization Address [facility] [place] [address] * (ABNORMAL) Vitamin D 25 hydroxy (03/30/2025 3:09 PM DRY DIP WORKER) Pathologist [facility] Vitamin D 25-OH 100(H) 30 - 80 ng/mL Blood 03/30/2025 3:09 PM DRY DIP WORKER 03/30/2025 3:47 PM DRY DIP WORKER Alberto Cruz MD LAB BLOOD ORDERABLES F inal Result Performing Organization Address [facility] Co de Phone Number JACKIE [facility] [place] [address] * Protime-INR (03/30/2025 3:09 PM DRY DIP WORKER) [facility] PT 13.0 10.2 - 13.5 sec INR 1.15 0.90 - 1.20 [facility] Comment: Interpretive data Oral anticoagulant therapeutic ranges: Venous thromboembolism prophylaxis or treatment: 2.0-3.0 CARDIOLOGY Standard range: 2.0-3.0 High-intensity range: 2.5-3.5 Refer to indication-specific guidelines for appropriate target ranges for prosthetic heart valve replacement. Current interpretive data was last revised on 2019. Blood 03/30/2025 3:09 PM DRY DIP WORKER 03/30/2025 3:47 PM DRY DIP WORKER Alberto Cruz MD LAB BLOOD ORDERABLES F inal Result [facility] [place] [address] * (ABNORMAL) CBC without differential (03/30/2025 3:09 PM DRY DIP WORKER) [facility] WBC 5.39 3.80 - 9.90 K/cumm Hgb 9.7(L) 11.9 - 15.5 g/dL [facility] Hct 30.4(L) 35.6 - 45.5 % [facility] Plt 169 150 - 400 K/cumm [facility] MPV 10.2 9.1 - 12.3 fL [facility] RBC 3.51(L) 3.90 - 5.20 M/cumm [facility] MCV 86.6 81.3 - 96.4 fL [facility] MCH 27.6 27.1 - 33.3 pg [facility] MCHC 31.9(L) 32.3 - 35.7 g/dL [facility] RDW CV 17.2(H) 11.1 - 14.9 % [facility] RDW SD 53.3(H) 35.7 - 48.1 fL [facility] NRBC abs 0.00 0.00 - 0.01 K/cumm [facility] Blood 03/30/2025 3:09 PM DRY DIP WORKER 03/30/2025 3:48 PM DRY DIP WORKER Alberto Cruz MD LAB BLOOD ORDERABLES F inal Result Performing Organization Address [facility] de Phone Number [facility] [place] [address] * Folate (03/30/2025 3:09 PM DRY DIP WORKER) [facility] Folic acid 10.8 >=5.0 ng/mL Blood 03/30/2025 3:09 PM DRY DIP WORKER 03/30/2025 3:47 PM DRY DIP WORKER Kareem Medina MD LAB BLOOD ORDERABLES Final Resul t Performing Organization Address [facility] de Phone Number [facility] Department [place] [address] * Vitamin B12 (03/30/2025 3:09 PM DRY DIP WORKER) [facility] Vitamin B12 921 230 - 1,250 pg/mL Blood 03/30/2025 3:09 PM DRY DIP WORKER 03/30/2025 3:47 PM DRY DIP WORKER Alberto Cruz MD LAB BLOOD ORDERABLES F inal Result Performing Organization Address [facility] de Phone Number [facility] [place] [address] * (ABNORMAL) Comprehensive metabolic panel (03/30/2025 3:09 PM DRY DIP WORKER) [facility] Sodium 144 135 - 145 mmol/L Potassium, pl 4.0 3.3 - 4.9 mmol/L [facility] Chloride 114(H) 97 - 110 mmol/L [facility] CO2 20(L) 22 - 32 mmol/L [facility] Anion gap 10 2 - 15 mmol/L [facility] BUN 16 6 - 25 mg/dL [facility] Creatinine 1.07 0.60 - 1.10 mg/dL [facility] Glucose 84 70 - 199 mg/dL [facility] Comment: Interpretive Data Fasting glucose >/= 126 mg/dl is diagnostic for diabetes. Fasting is defined as no caloric intake for at least 8 hours. Fasting glucose between 100 mg/dl to 125 mg/dl is diagnostic of prediabetes. In a patient with classic symptoms of hyperglycemia or hyperglycemic crisis, a random glucose >/= 200 mg/dl is diagnostic for diabetes. In the absence of unequivocal hyperglycemia, results should be confirmed by repeat testing. The classification and Diagnosis of Diabetes Diabetes Care 2021; 46: S19-S40. Current interpretive data was last revised 2022. Calcium 10.5(H) 8.5 - 10.3 mg/dL [facility] Bilirubin, total 1.1 0.1 - 1.2 mg/dL [facility] Protein, pl 7.0 6.5 - 8.5 g/dL [facility] Albumin 3.2(L) 3.5 - 5.0 g/dL [facility] Alk phos 65 40 - 130 Units/L [facility] ALT 13 7 - 45 Units/L [facility] AST 26 10 - 45 Units/L [facility] Blood 03/30/2025 3:09 PM DRY DIP WORKER 03/30/2025 3:47 PM DRY DIP WORKER Alberto Cruz MD LAB BLOOD ORDERABLES F inal Result [facility] Department [place] [address] * COLONOSCOPY (06/10/2018 10:29 AM DRY DIP WORKER) Anatomical Region Laterality Modality Other Narrative Procedure Note Chris Dupont MD - 06/10/2018 10:29 AM CST [facility] Patient Name: Jordyn Feldman Procedure Date: 06/10/2018 10:29 AM Date of : 1955 Admit Type: Outpatient Age: 62 Gender: Female Attending MD: Chris Dupont M.D. Room: [facility] ENDOSCOPY ROOM 9 Note Status: Finalized Procedure: Colonoscopy Indications: Screening for colorectal malignant neoplasm - first colonoscopy Referring MD: Carmen Joseph MD Providers: Chris Dupont M.D. Medicines: Monitored Anesthesia Care Complications: No immediate complications. Estimated Blood Loss: Estimated blood loss: none. Procedure: Pre-Anesthesia Assessment: - The risks and benefits of the procedure and the sedation options and risks were discussed with the patient. All questions were answered and informed consent was obtained. - Immediately prior to administration ofmedications, the patient was re-assessed for adequacy to receive sedatives. The benefits, risks and alternatives of theprocedure and sedation were discussed and informed consent was obtained. All questions were answered. Please referto the signed informed consent document in the medical record. The scope was passed under direct vision.The [id number] endoscope was introduced throughthe anus and advanced to the cecum, identified by appendiceal orifice and ileocecal valve. The colonoscopy was performed without difficulty. The patient tolerated the procedure well. The quality of the bowel preparation was evaluated using the BBPS ([place] Bowel Preparation Scale) with scores of:Right Colon = 3, Transverse Colon = 3 and Left Colon = 3 (entire mucosa seen well with no residual staining, small fragments of stool or opaque liquid). Thetotal BBPS score equals 9. The bowel preparation used was GoLYTELY. Findings: The perianal and digital rectal examinations were normal. The colon (entire examined portion) appeared normal. The retroflexed view of the distal rectum and anal verge was normaland showed no anal or rectal abnormalities. Impression: - The entire examined colon is normal. - The distal rectum and anal verge are normal on retroflexion view. Recommendation: - Return to referring physician as previouslyscheduled. - Repeat colonoscopy in 10 years for screeningpurposes. Attending Participation: I personally performed the entire procedure. Electronically signed by Chris Dupont M.D. Chris Dupont M.D. 06/10/2018 11:03:17 AM . Number of Addenda: 0 Note Initiated On: 06/10/2018 10:29 AM Recognized by the [place] [employer] for promoting quality in endoscopy Chris Dupont MD ENDOSCOPY PROCEDURES Final Result * Serum Hepatitis panel (04/15/2013 6:57 AM DRY DIP WORKER) HBV surface ag Negative NEG HISTO RICAL RESULTS HCV ab Negative NEG HISTORICAL RESULTS Comment: Interpretive Data If confirmation is required, call Laboratory Customer Service to request sample to be sent to [facility] for Hepatitis C Virus (HCV) RNA Detection and Quantitation by Real-Time Reverse Lime Boiler-PCR (RT-PCR). Current interpretive data was last revised on 2011 HBV core ab, IgM Negative NEG HIS TORICAL RESULTS Comment: Interpretive Data If test is reported as Equivocal, new sample should be drawn for testing. Current interpretive data was last revised on 2007. HAV ab, IgM Negative NEG HISTORIC AL RESULTS Comment: Interpretive Data If test is reported as Equivocal, new sample should be drawn in two weeks for testing. Current interpretive data was last revised on 2007. Serum 04/15/2013 6:57 AM DRY DIP WORKER us Lilliana Whiting LAB BLOOD ORDERABLES Final Resul t HISTORICAL RESULTS from Last 3 Months or Most Recently Relevant to Health Maintenance Insurance [facility], [facility] PREFERRED ANTHEM ACCESS BL CHOICE PRF [place] [facility] MEDICARE ADVANTAGE [facility] MEDICARE ADVANTAGE [facility] Address: [address] [address] [place] [address] Advance Directives For more information, please contact: [phone] * Full Code (Latest Code Status on File) Date Activated Date Inactivated Comments 02/10/2023 9:18 AM 02/10/2023 2:30 PM * Full Code Date Activated Date Inactivated Comments 06/04/2022 11:36 AM 06/05/2022 6:08 PM * Full Code Date Activated Date Inactivated Comments 09/20/2020 9:50 AM 09/20/2020 4:05 PM * Full Code Date Activated Date Inactivated Comments 11/03/2018 9:44 AM 11/03/2018 3:54 PM * Full Code Date Activated Date Inactivated Comments 06/10/2018 9:25 AM 06/10/2018 3:45 PM Care Teams Gate Keeper Relationship Specialty Start Date End Date Carmen Joseph MD PCP - General 09/17/16
--- OUTSIDE RECORDS SUMMARY | 2025-04-06 09:57 | XMS_ITS | Encounter Summary ---
Author Organization [facility] Address [address] [place] [address] Phone Care Team Providers Care Carbide Die Maker Name Role Phone Carmen Joseph MD Primary Care Provider + Encounter Details Date Type Department Care Team (Late st Contact Info) Description 06/02/2018 Orders Only [facility] Scanning, Provider Social History Tobacco Use Types Packs/Day Years Used Date Smoking Tobacco: Never Smokeless Tobacco: Never Alcohol Use Standard Drinks/Week Comments No 0 (1 standard drink = 0.6 oz pur e alcohol) Hx heavy use, last used '13 Comments Unknown Sex and Gender Information Value Date Recorded Sex Assigned at Not on file Legal Sex Female 9:50 AM WATER CONSERVATIONIST Gender Identity Not on file Sexual Orientation Not on file documented as of this encounter Plan of Treatment Not on file documented as of this encounter Procedures Procedure Name Priority Date/Time Associated Diagnosis Comments SCAN - RADIOLOGY/IMAGING 06/02/2018 documented in this encounter Results * SCAN - RADIOLOGY/IMAGING (06/02/2018) Anatomical Region Laterality Modality Other us Provider Scanning Final Result documented in this encounter Visit Diagnoses Not on filedocumented in this encounter Care Teams Carbide Die Maker Relationship Specialty Start Date End Date Carmen Joseph MD PCP - General 09/17/16 documented as of this encounter
--- OUTSIDE RECORDS SUMMARY | 2025-04-06 09:57 | XMS_ITS | Encounter Summary ---
Author Organization [facility] Address [address] [place] [address] Phone Care Team Providers Care Supply Room Clerk Name Role Phone Carmen Joseph MD Primary Care Provider + Encounter Details Date Type Department Care Team (Late st Contact Info) Description 03/09/2023 Orders Only [facility] Scanning, Provider Social History Tobacco Use Types Packs/Day Years Used Date Smoking Tobacco: Never Smokeless Tobacco: Never Alcohol Use Standard Drinks/Week Comments No 0 (1 standard drink = 0.6 oz pur e alcohol) Hx heavy use, last used '13 AUDIT-C Answer Date Recorded Q1: How often do you have a drink containing alcohol? Never 02/10/2023 Q2: How many drinks containi ng alcohol do you have on a typical day when you are drinking? Patient does not drink Frequency of Binge Drinking Not on file 01/17 Personal Safety Answer Date Recorded Have you ever been in or are you currently in a harmful physical or emotional relationship or is someone making you feel afraid or unsafe? Denies 02/10/2023 Comments No Sex and Gender Information Value Date Recorded Sex Assigned at Not on file Legal Sex Female 9:50 AM HOOK AND EYE ATTACHER Gender Identity Not on file Sexual Orientation Not on file documented as of this encounter Plan of Treatment Not on file documented as of this encounter Procedures Procedure Name Priority Date/Time Associated Diagnosis Comments SCAN - RADIOLOGY/IMAGING 03/09/2023 documented in this encounter Results * SCAN - RADIOLOGY/IMAGING (03/09/2023) Anatomical Region Laterality Modality Other us Provider Scanning Final Result documented in this encounter Visit Diagnoses Not on filedocumented in this encounter Care Teams Supply Room Clerk Relationship Specialty Start Date End Date Carmen Joseph MD PCP - General 09/17/16 documented as of this encounter
--- OUTSIDE RECORDS SUMMARY | 2025-04-06 09:58 | XMS_ITS | Clinical Summary ---
Author Organization [facility] Address [address] [place] [address] Care Team Providers Care Director Corporate Security Name Role Phone Carmen Joseph MD Primary Care Provider [phone] Sohail Vázquez MD Unavailable [phone] Source Comments [facility],non-owned Affiliates and Associated Physician Practices is amultiple site organization consisting of ambulatory clinics and hospital sitesin [place], [place], [place] and [place]. This disclosure is being madepursuant to the Care Everywhere program and may not contain all information available regarding this patient. Last updated 18.[facility] [employer] Allergies Active Allergy Reactions Criticality Noted Date Comments Codeine Nausea and/or Vomiting 03/27/2020 Sulfa Drugs Nausea and/or Vomiting 03/27/2020 Medications * Be aware that medications may not be up to date on this document. Alwaysverify current medications with the patient. ALPRAZolam (Xanax) 0.25 MG tablet TAKE 2 TABLETS BY MOUTH AT BEDTIME NEEDED FOR ANXIETY 3 Active Cholecalciferol (vitamin D3) 1.25 MG (73720 UT) capsule Take 1 (one) capsule by mouth every 7 days Fridays Active lactulose (Chronulac) 10 GM/15ML solution Take 25 mL by mouth once daily Reports taking twice a week Sundays and 4 Active omeprazole (PriLOSEC) 40 MG capsule Take 1 (one) capsule by mouth daily before breakfast 4 Active lisinopril (Prinivil; Zestril) 10 MG tablet Take 1 (one) tablet by mouth at bedtime 4 Active Active Problems Problem Noted Date Diagnosed Date Arthritis of knee 06/09/2024 Shoulder pain 06/04/2022 Osteoarthritis of left shoulder 05/06/2022 Overview (10/19/2023): Added automatically from request for surgery [id number] Esophageal varices without bleeding 01/08/2022 Overview (10/19/2023): Added automatically from request for surgery [id number] Last Assessment & Plan: EGD 2022 w/ normal esophagus and moderate PHG. We will reassess need for variceal surveillance in 2025. Alcohol dependence in remission 12/19/2019 Overview (10/19/2023): Last Assessment & Plan: Her last alcoholic beverage was 11 years ago. Congratulated and encouraged her on continued strict abstinence from alcohol. Alcoholic cirrhosis of liver without ascites Overview (10/19/2023): Added automatically from request for surgery [id number] Last Assessment & Plan: Well-compensated alcohol related cirrhosis with MELD 3.0 [...] 1 year or earlier as clinically indicated. Esophageal varices in cirrhosis 02/23/2015 Anaclitic depression 05/30/2013 Anxiety disorder 05/30/2013 Ascites 05/30/2013 Hepatic cirrhosis 05/30/2013 Immunizations Immunization Administration Dates Next Due INFLUENZA VACCINE, QUADR. (F LUZONE; FLULAVAL; FLUARIX; AFLURIA QUADRIVALENT; 6MO+), 0.5 ML (IIV4) 03/27/2020 Social History Tobacco Use Types Packs/Day Years Used Date Smoking Tobacco: Never Smokeless Tobacco: Never Tobacco Cessation:Counseling Given: Not Answered Alcohol Use Standard Drinks/Week Comments Not Currently 0 (1 standard drink = 0.6 oz pur e alcohol) none for 10-11 yrs ago AUDIT-C Answer Date Recorded Q1: How often do you have a drink containing alcohol? Never 06/10/2024 Q2: How many drinks containi ng alcohol do you have on a typical day when you are drinking? Patient does not drink Q3: How often do you have si x or more drinks on one occasion? Never 06/10/2024 Overall Financial Resource Strain (CARDIA) Answe r Date Recorded How hard is it for you to pa y for the very basics like food, housing, medical care, and heating? Not hard at all 06/09/2024 PHQ-2 Answer Date Recorded Patient Health Questionnaire-2 Score 3 10/19/2023 [facility] - Occupational Stress Questionnaire Answer Date Recorded Do you feel stress - tense, restless, nervous, or anxious, or unable to sleep at night because your mind is troubled all the time - these days? Not at all 06/09/2024 Hunger Vital Sign Answer Date Recorded Within the past 12 months, y ou worried that your food would run out before you got the money to buy more. Never true 06/09/19 25 Within the past 12 months, t he food you bought just didn't last and you didn't have money to get more. Never true 06/09/2024 PRAPARE - Transportation Answer Date Re corded In the past 12 months, has l ack of transportation kept you from medical appointments or from getting medications? No 05/19 In the past 12 months, has l ack of transportation kept you from meetings, work, or from getting things needed for daily living? No 06/09/2024 Housing Stability Vital Sign Answer Dhruv e Recorded In the last 12 months, was t here a time when you were not able to pay the mortgage or rent on time? No 06/09/2024 In the past 12 months, how m any times have you moved where you were living? 1 06/09/2024 At any time in the past 12 m [facility], were you homeless or living in a group home (including now)? No 06/09/2024 Comments Unknown Sex and Gender Information Value Date Recorded Sex Assigned at Not on file Legal Sex Female 11:53 AM RETURNING OFFICER Gender Identity Not on file Sexual Orientation Not on file Last Filed Vital Signs Vital Sign Reading Time Taken Comments Blood Pressure 140/57 06/12/2024 5:24 AM RETURNING OFFICER Pulse 71 06/12/2024 5:24 AM RETURNING OFFICER Temperature 36.5 C (97.7 F) 06/12/2024 5:25 AM RETURNING OFFICER Respiratory Rate 18 06/12/2024 5:24 AM RETURNING OFFICER Oxygen Saturation 92% 06/12/2024 5:24 AM RETURNING OFFICER Inhaled Oxygen Concentration - - Weight 63.5 kg (140 lb) 06/09/2024 6:52 AM RETURNING OFFICER Height 165.1 cm (5' 5) 06/09/2024 6:52 AM RETURNING OFFICER Body Mass Index 23.3 06/09/2024 6:52 AM RETURNING OFFICER Plan of Treatment Health Maintenance Due Date Last Done Comments BONE DENSITY TESTING 1955 COLOGUARD (AGES 45-75) - COLON CA SCREENING 1955 CT COLONOGRAPHY - COLON CA SCREENING 1955 FIT - COLON CA SCREENING 1955 FLEX SIG - COLON CA SCREENING 1955 LIPID TESTING 1955 MAMMOGRAM 1955 HEPATITIS C SCREENING 09/27/1975 DTAP/TDAP/TD VACCINES (1 - Tdap) 1976 PNEUMOCOCCAL VACCINE 50+ (1 of 2 - PCV) 1976 Respiratory Syncytial Virus (RSV) Vaccine Pt: or over 60 yrs (1 - Risk 50-74 years 1-dose series) 10/02/2007 ZOSTER VACCINE (1 of 2) 10/02/2007 HEPATITIS B VACCINE (1 of 3 - Risk 3-dose series) 2017 DEPRESSION SCREENING 05/18/2024 MEDICARE AWV CALENDAR YEAR 2024 COVID-19 VACCINE ( - season) 2025 10/28/2021, 04/08/2021, 08/07/2020, Additional history exists INFLUENZA VACCINE (#1) 2025 03/20/2021, 2019 COLON MONITORING 06/10/2028 06/10/2018 COLONOSCOPY - COLON CA SCREENING 06/10/2028 06/10/2018 Colorectal Cancer Screening 06/10/2028 HIB VACCINE Aged Out No longer eligi ble based on patient's age to complete this topic HPV VACCINE Aged Out No longer eligi ble based on patient's age to complete this topic MENINGOCOCCAL (Group B) VACCINE SHARED DECISION-MAKING Aged Out No longer eligible based on patient's age to complete this topic MENINGOCOCCAL GROUPS A/C/Y/W VACCINE Aged Out No longer eligible based on patient's age to complete this topic Goals Goal Patient Goal Type Associated Problems Recent Progress Patient-Stated? Author Autogenerat ed Goal Care Plan Autogenerated Problem No [employer] Implanted Type Area Tipple Greaser Device Identifier Shelf Expiration Date Model / Serial / Lot Cmnt Bone Refobacin Strl Lf Disp Implanted:Qty: 1 on 06/09/2024 by James Iniguez MD at [facility] Left: Knee [employer] 06/17/2026 [id number] / / [id number] Cmpnt Fem Kn Lt Cr Cmnt Prm Vngrd Intlk 62.5 Mm Implanted:Qty: 1 on 06/09/2024 by James Iniguez MD at [facility] Left: Knee [employer] 03/28/2034 [id number] / / [id number] Cmpnt Ptlr Std 28mm 3 Pg Kn Ser A Implanted:Qty: 1 on 06/09/2024 by James Iniguez MD at [facility] Left: Knee [employer] 04/22/2029 [id number] / / [id number] Tray Tib 71mm Kn Cocr I Beam Implanted:Qty: 1 on 06/09/2024 by James Iniguez MD at [facility] Left: Knee [employer] 08/03/2033 [id number] / / [id number] Cmnt Bone Plc R 40gm Grn Implanted:Qty: 1 on 06/09/2024 by James Iniguez MD at [facility] Left: Knee [employer] 07/15/2026 [id number] / / [id number] Brng Unassigned 26i34zo Vngrd Kn Implanted:Qty: 1 on 06/09/2024 by James Iniguez MD at [facility] Left: Knee [employer] 01/17/2029 [id number] / / [id number] Additional Health Concerns Active Problems Noted Date Diagnosed Date Autogenerated Problem 04/05/2025 Insurance [facility] MANAGED MEDICARE [facility]V [facility] Advance Directives * Full Code (Latest Code Status on File) Date Activated Date Inactivated Comments 06/09/2024 11:28 AM 06/12/2024 1:22 PM Care Teams Director Corporate Security Relationship Specialty Start Date End Date Carmen Joseph MD [address] [place] [id number] PCP - General Family Medicine 02/01/24 Sohail Vázquez MD [address] [place] [address] Neurology 02/11/24
--- OUTSIDE RECORDS SUMMARY | 2025-04-06 09:58 | XMS_ITS | Encounter Summary ---
Author Organization [facility] Address [address] [place] [address] Phone Care Team Providers Care Detective Investigator Name Role Phone Carmen Joseph MD Primary Care Provider + Encounter Details Date Type Department Care Team (Late st Contact Info) Description 03/30/2025 Results Follow-Up [facility] [address] [place] [address] [place] [address] Alberto Cruz MD [address] [facility] [address] [place] [address] Vitamin D 25 hydroxy, Vitamin B12, [id number], Tumor Marker, Additional followed-up results: 4 Social History Tobacco Use Types Packs/Day Years [...] on file Legal Sex Female 9:50 AM ENROLLMENT MANAGEMENT COORDINATOR Gender Identity Not on file Sexual Orientation Not on file 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 Author CCM Chronic Pain Care Plan Chronic Care Management Nika Valencia, RN Note: Problem: Chronic Pain Goals: 1. Minimize further functional decline 2. Maximize quality of life 3. Control pain Strategies: - Activity/exercise program recommendation - Conservative stepwise pain medicine strategy with multi-disciplinary approach - Recommend healthy lifestyle strategies and compensatory methods as needed documented as of this encounter Visit Diagnoses Not on filedocumented in this encounter Care Teams Detective Investigator Relationship Specialty Start Date End Date Carmen Joseph MD PCP - General 09/17/16 documented as of this encounter
--- OUTSIDE RECORDS SUMMARY | 2025-04-06 09:58 | XMS_ITS | Encounter Summary ---
Author Organization [facility] Address [address] [place] [address] Care Team Providers Care Farm Demonstrator Name Role Phone Carmen Joseph MD Primary Care Provider [phone] Sohail Vázquez MD Unavailable Reason for Visit * Reason Onset Date Comments 6 Month Recall 06/13/2024 Encounter Details Date Type Department Care Team (Late Contact Info) Description 06/13/2024 Telephone [facility] Phys Standard [id number] [place] [id number] [place] [address] [place] [address] 6 Month Recall Social History Tobacco Use Types Packs/Day Years Used Date Smoking Tobacco: Never Smokeless Tobacco: Never Alcohol Use Standard Drinks/Week Comments Not Currently [...] Recorded Patient Health Questionnaire-2 Score 3 10/19/2023 [place] [facility] - Occupational Stress [...] any time in the past 12 m [facility], were you homeless or living in a [place] health care facility (including now)? No 06/09/2024 Comments Unknown Sex and Gender Information Value Date Recorded Sex Assigned at Not on file Legal Sex Female 11:53 AM PATROL JUDGE Gender Identity Not on file Sexual Orientation Not on file documented as of this encounter Functional Status * Is person deaf or have serious hearing difficulty? Answer Date of Assessment Author No 06/10/2024 3:39 PM Roberto Mckeon RN * Is person blind or have serious difficulty seeing? Answer Date of Assessment Author No 06/10/2024 3:39 PM Roberto Mckeon RN * Does person have serious difficulty walking/climbing stairs? Answer Date of Assessment Author No 06/10/2024 3:39 PM Roberto Mckeon, RN * Does person have difficulty dressing/bathing? Answer Date of Assessment Author No 06/10/2024 3:39 PM Roberto Mckeon RN * Does person have difficulty doing errands alone? Answer Date of Assessment Author Yes 06/10/2024 3:39 PM PATROL JUDGE Roberto Wilson, RN documented as of this encounter Mental Status * Does person have difficulty concentrating/remembering/making decisions? Answer Entry Date Author Yes 06/10/2024 3:39 PM PATROL JUDGE Roberto Wilson RN documented in this encounter Miscellaneous Notes * Telephone Encounter - Gian Escamilla MD - 06/13/2024 12:28 PM PATROL JUDGE Called in prescription for Sensipar 30 mg q.day with breakfast to [facility] in the chart. Called and updated. Will need to follow up with endocrinology as scheduled OL JUDGE documented in this encounter Plan of Treatment Not on file documented as of this encounter Visit Diagnoses Not on filedocumented in this encounter Care Teams Farm Demonstrator Relationship Specialty Start Date End Date Carmen Joseph MD [address] [place] [address] PCP - General Family Medicine 02/01/24 Sohail Vázquez MD [address] [place] [address] Neurology 02/11/24 documented as of this encounter
[2025-04-06 10:03] LABS: INR 1.2; Prothrombin Time 15.3 Seconds (11.1-14.7)
[2025-04-06 10:04] LABS: Partial Thromboplastin Time 30.5 Seconds (22.3-36.8)
--- NOTE | 2025-04-06 10:14 | ED.AMS ---
HPI - Altered Mental Status General Chief Complaint: Altered Mental Status Stated Complaint: AMS for a couple days Time Seen by Provider: 04/06/25 10:13 Source: patient Mode of arrival: ambulatory Limitations: no limitations History of Present Illness HPI narrative: 69 YEARS OLD WHITE FEMALE CAME TO THE ED FROM HOME WITH HER BY PRIVATE CAR BECAUSE OF INCREASED CONFUSION OVER THE LAST 48 HOURS. HISTORY OF LIVER DISEASE, PATIENT CURRENTLY ON LACTULOSE DAILY. PATIENT DECLINED TO TAKE HER LACTULOSE THIS MORNING. PATIENT MAIN COMPLAINT IS NOT FEELING GOOD FOR OVER 1 YEAR. PATIENT IS ALERT, DISORIENTED X4. DENIED THAT THE PATIENT HAVE ANY FEVER OR CHILLS OR NAUSEA OR VOMITING OR DIARRHEA OR ABDOMINAL PAIN OR BACK PAIN OR CHEST PAIN OR SHORTNESS OF BREATH Related Data Home Medications ?Medication ?Instructions ?Recorded ?Confirmed ?Last Taken ?Type omeprazole 40 mg capsule,delayed 40 mg PO DAILY 02/25/21 03/07/25 08/29/21 History release trospium 60 mg capsule,extended mg PO 01/25/25 03/07/25 Unknown History release 24 hr Allergies Allergy/AdvReac Type Severity Reaction Status Date / Time Sulfa (Sulfonamide Allergy Severe Nausea Verified 03/07/25 10:04 Antibiotics) codeine AdvReac Mild Nausea Verified 03/07/25 10:04 Review of Systems Review of Systems: All systems reviewed & are unremarkable except as noted in HPI and below PMFSH Past Medical History Medical History Screening mammogram, encounter for Sciatica Osteoarthritis Vertigo Right ureteral calculus Nephrolithiasis Newly recognized murmur Essential hypertension Surgical History Surgical History History of left knee replacement (~07/2024) H/O shoulder replacement LEFT SHOULDER -06/2022 Done at [facility] History of ovarian cystectomy 1987 & 1992 History of total abdominal hysterectomy (03/14/04) History of endometrial ablation (02/08/04) hscope emb in office History of lumpectomy (~01/16/01) Family History Family History Mother Dementia Social History Social History Smoking status: Never smoker Second hand tobacco smoke exposure: No Alcohol intake: never Substance use: never Substance use type: does not use Do You Feel Safe in your Home?: Yes Lack of Transportation: No Lack of Food: Never True Current Housing: I Have Housing Concerned About Future Housing: No Difficulty Paying Gas/Electric Bills: No Difficulty Paying for Meds: No Currently Unemployed: No Education: Master's Degree or Higher Difficulty w/ Childcare or Family Care: No Living arrangements: other Additional living arrangements comments: Occupation/Education: occupation 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 Gender identity (if verbalized by the patient): Female Sexual Orientation (if Verbalized by the Patient): Straight or Heterosexual Spiritual care concerns: No Exam Narrative: GENERAL APPEARANCE: WELL-DEVELOPED, WELL-NOURISHED SKIN: NORMAL COLOR HEAD: NORMOCEPHALIC, NONTRAUMATIC EYES: CLEAR CONJUNCTIVA ENT: OROPHARYNX NORMAL, EARS NORMAL, NOSE NORMAL NECK: SUPPLE, NONTENDER CHEST AND RESPIRATORY: AIRWAY PATENT, NO RESPIRATORY DISTRESS, NO ACCESSORY MUSCLE USE HEART: REGULAR RATE/RHYTHM ABDOMEN: SOFT, NONTENDER, NO ORGANOMEGALY, QUIET BOWEL SOUNDS VASCULAR: NORMAL PERIPHERAL PULSES, NORMAL CAPILLARY REFILL. MUSCULOSKELETAL: NORMAL RANGE OF MOTION, NONTENDER BACK NEUROLOGIC: ALERT , DISORIENTED X4 Course Vital Signs Vital signs: Vital Signs Pulse Rate 80 04/06/25 09:08 Respiratory Rate 21 H 04/06/25 09:08 Blood Pressure 170/74 H 04/06/25 09:08 Pulse Oximetry 100 04/06/25 09:08 Temperature 37.2 C 04/06/25 09:15 Pulse Rate 78 04/06/25 11:46 Respiratory Rate 19 04/06/25 11:46 Blood Pressure 146/65 H 04/06/25 11:46 Pulse Oximetry 100 04/06/25 10:53 Oxygen Delivery Room Air 04/06/25 09:15 MDM - Altered Mental Status MDM Narrative Medical decision making narrative: PATIENT PRESENTS WITH INCREASED CONFUSION OVER THE LAST 48 HOURS DID NOT TAKE HER LACTULOSE THIS MORNING. VITAL SIGNS ARE STABLE PHYSICAL EXAMINATION UNREMARKABLE EXCEPT FOR DISORIENTATION TO HER AGE, THE NAME OF THE PRESIDENT AND THE YEAR. DIFFERENTIAL DIAGNOSIS HEPATIC ENCEPHALOPATHY, DEPRESSION, INTRACRANIAL ABNORMALITY, ELECTROLYTE IMBALANCE, DEHYDRATION, URINARY TRACT INFECTION BLOOD WORKUP TODAY INCLUDES CBC, CMP, AMMONIA LEVEL SHOWED HEMOGLOBIN 9.9, BUN 24, CALCIUM 10.8, TOTAL BILIRUBIN 1.7, AMMONIA LEVEL 47 URINALYSIS 1+ LEUKS TRACE, 11-[address] HEAD SHOWED NO ACUTE ABNORMALITY DIAGNOSIS INCREASED CONFUSION, ELEVATED AMMONIA LEVEL I DID RECOMMEND PATIENT TAKE HER LACTULOSE PRESCRIBED AND AMMONIA LEVEL TODAY IS SLIGHTLY ELEVATED NOT CRITICAL AND THE PATIENT LOOKS COMFORTABLE AND NOT IN ANY PAIN OR DISTRESS. AGREED. THE PT WAS DISCHARGED TO HOME.THE PT,S CONDITION UPON DISCHARGE WAS FAIR,EDUCATION WAS PROVIDED TO THE PT IN REFERENCE TO THE FINAL IMPRESSION,DISCHARGE STUDY RESULTS,TREATMENT,PROGNOSIS AND NEED FOR FOLLOW UP . Differential Diagnosis Differential diagnosis: Likely other ( ABOVE) Medical Records Attestation: I reviewed the patient's medical records. Lab Data Attestation: I reviewed the patient's lab results. 04/06/25 09:32 04/06/25 09:32 Labs: Lab Results 04/06/25 04/06/25 Range/Units 09:32 10:13 WBC 3.8 L (4.5-10.0) K/mm3 RBC 3.50 L (4.2-5.4) M/mm3 Hgb 9.9 L D (12.0-15.0) g/dL Hct 30.8 L (37.0-47.0) % MCV 88.0 (80-100) fl MCH 28.3 (26-34) pg MCHC 32.1 (32-36) g/dl RDW 17.5 H (11.5-14.5) % Plt Count 109 L (150-375) k/mm3 MPV 10.1 (7.4-10.4) fl Immature Gran % (Auto) 0.3 (0-0.5) % Neut % (Auto) 57.0 (45.5-73.1) % Lymph % (Auto) 31.2 (18.3-44.2) % Erie % (Auto) 8.4 (2.6-8.5) % Eos % (Auto) 2.1 (0-4.4) % Baso % (Auto) 1.0 (0.2-1.2) % Lymph # (Auto) 1.19 (0.9-3.2) K/mm3 Erie # (Auto) 0.3 (0.1-0.6) K/mm3 Eos # (Auto) 0.1 (0-0.3) K/mm3 Baso # (Auto) 0.0 (0.0-0.1) K/mm3 Abs Immat Gran (auto) 0.01 (0.00-0.031) K/mm3 Absolute Neuts (auto) 2.2 (1.3-6.7) K/mm3 Absolute Nucleated RBC 0.000 (0.0-0.012) K/mm3 Nucleated RBC % 0.0 (0.0-0.2) % PT 15.3 H (11.1-14.7) Seconds INR 1.2 APTT 30.5 (22.3-36.8) Seconds Sodium 144 (137-145) mmol/L Potassium 3.8 (3.4-5.0) mmol/L Chloride 118 H (98-107) mmol/L Carbon Dioxide 21 L (22-30) mmol/L Anion Gap 5 (4-12) mmol/L BUN 24 H (7-17) mg/dL Creatinine 0.99 (0.7-1.0) mg/dL Estim Creat Clear Calc 43 ml/min Estimated GFR 56 L (59 - ) Glucose 90 (65-110) mg/dL Calcium 10.8 H (8.4-10.2) mg/dL Total Bilirubin 1.7 H (0.2-1.3) mg/dL AST 28 (14-36) U/L ALT 18 (6-35) U/L Alkaline Phosphatase 71 (38-126) U/L Ammonia 47 H (9-30) umol/L Total Protein 7.1 (6.3-8.2) g/dL Albumin 3.6 (3.5-5.1) g/dL Urine Color Yellow (Yellow) Urine Appearance Clear (Clear) Urine pH 7.0 (5.0-9.0) Ur Specific Glennie 1.015 (1.001-1.035) Urine Protein Negative (Negative) mg/dL Urine Glucose (UA) Negative (Negative) mg/dL Urine Ketones Trace H (Negative) mg/dL Ur Blood (Man) Negative (Negative) Urine Nitrate Negative (Negative) Urine Bilirubin Negative (Negative) Urine Urobilinogen 1.0 (<2.0) mg/dL Leukocyte Esterase Rfl 1+ H (Negative) ARACELIS/UL Urine RBC 3-5 H (0-2) /hpf Urine WBC 11-20 H (0-3) /hpf Ur Squamous Epith Cells None seen (Few) /hpf Urine Bacteria None seen /hpf Urine Casts 0-2 Imaging Data Radiologist's impression: Impressions Head CT 04/06/25 10:55 IMPRESSION: 1. No gross intracranial mass effect or hemorrhage. ECG Data EKG #1: Attestation: I personally reviewed and interpreted this ECG as follows: ECG completion date: 04/06/25 Interpretation: NORMAL SINUS RHYTHM AT 80 BEATS PER MINUTE, NO PREVIOUS EKG AVAILABLE FOR COMPARISON Critical Care Time Critical Care Time Critical Care Time: No Discharge Plan Discharge Clinical Impression: Acute alteration in mental status, Hypercalcemia, Increased ammonia level Patient Disposition: Home Condition: Stable Instructions: Altered Mental Status (ED), Hypercalcemia (ED) Additional Instructions: RETURN IF SYMPTOMS ARE WORSENING , CALL YOUR [facility]PER[facility] PROCESS FOR APPOINTMENT, TAKE LACTULOSE PRESCRIBED DAILY. Patient Language: Korean Prescriptions: No Action trospium 60 mg capsule,extended release 24hr PO omeprazole 40 mg Capsule,Delayed Release(Dr/Ec) 40 mg PO DAILY alprazolam 0.25 mg tablet See Rx Instructions PO HS PRN (Reason: anxiety) Qty: 60 5RF Rx Instructions: 1-2 tabs po orally bedtime PRN; lactulose 10 gram/15 mL solution See Rx Instructions .ROUTE .COMPLEX Qty: 5400 1RF Dose Instruction: TAKE 30 ML BY MOUTH TWICE DAILY Rx Instructions: TAKE 30 ML BY MOUTH q d lisinopril 10 mg tablet 10 mg PO DAILY Qty: 90 2RF cholecalciferol (vitamin D3) 1,250 mcg (50,000 unit) capsule 1,250 mcg PO WEEKLY Qty: 14 3RF sertraline 25 mg tablet 25 mg PO DAILY Qty: 30 3RF Follow-up/Referrals: Carmen Joseph MD [Primary Care Provider, [facility]]
[2025-04-06 10:21] LABS: Add Urine Microscopic? YES; Appearance Urine Clear (Clear); Glucose Urine UA Negative (Negative); Leukocyte Esterase Ur 1+ LEU/UL (Negative); Nitrate Urine Negative (Negative); Non Pathogenic Casts 0-2; Specific Grav Ur 1.015 (1.001-1.035)
[2025-04-06] MEDS: LACTULOSE 20 GM/30 ML UDC PO (10:57)
== END 2025-04-06 12:00 | disposition home or self-care (01) ==
PROVIDERS: Emergency Provider Emergency Medicine; PCP Family Medicine
DX: R41.82 Altered mental status, unspecified (principal); E83.52 Hypercalcemia; E72.20 Disorder of urea cycle metabolism, unspecified; I10 Essential (primary) hypertension; K76.9 Liver disease, unspecified; M19.90 Unspecified osteoarthritis, unspecified site; Z96.652 Presence of left artificial knee joint; Z96.612 Presence of left artificial shoulder joint; Z87.442 Personal history of urinary calculi; Z90.710 Acquired absence of both cervix and uterus; Z79.899 Other long term (current) drug therapy
CPT/HCPCS: 36415; 70450; 80053; 81001; 82140; 85025; 85610; 85730; 87086; 93005; 99284; A9270